=== PATIENT | female | born 1945 | race Caucasian/White ===

== ENCOUNTER → 2016-10-26 | Outpatient (CLI) | payer OTHER ==
[~2016-10-26] MED LIST: GABA-113 PO; MULT-506 PO; OXCA150T2 PO; ZNTT/150 PO
--- NOTE | 2016-10-26 14:15 | MAMMOGRAPHY REPORT ---
BILATERAL DIGITAL SCREENING MAMMOGRAM WITH CAD: 10/26/2016 CLINICAL HISTORY: Routine screening. Patient has no complaints. TECHNIQUE: Current study was also evaluated with a Computer Aided Detection (CAD) system. Bilateral CC and MLO views were obtained. COMPARISON: Comparison is made to exams dated: 09/22/2015 mammogram, 09/19/2014 mammogram, 09/17/2012 m ammogram, 09/13/2010 mammogram, and 09/10/2009 mammogram - [facility]. BREAST COMPOSITION: The tissue of both breasts is almost entirely fatty. FINDINGS: No suspicious masses, calcifications, or areas of architectural distortion are noted in ei ther breast. There has been no significant interval change compared to prior exams. Scattered bilate ral benign-appearing calcifications are stable. Asymmetry in the left lateral breast is stable datin g back to at least the 2009 exam. IMPRESSION: ACR BI-RADS CATEGORY 2: BENIGN There is no mammographic evidence of malignancy. A 1 year screening mammogram is recommended. The pa tient will receive written notification of the results. Approximately 10% of breast cancers are not detected with mammography. A negative mammographic report should not delay biopsy if a clinically suggestive mass is present. Laina Moreno M.D. ah/:10/26/2016 14:01:07 Social Science Manager: Kaykay ERVIN(Shannon)(M), [facility] letter sent: Normal 1/2 BI-RADS Code: ACR BI-RADS Category 2: Benign
== END | disposition home or self-care (01) ==
LOC: C.MAMM 11:37
PROVIDERS: ATTEND Family Medicine
DX: Z12.31 Encounter for screening mammogram for malignant neoplasm of breast (principal)

== ENCOUNTER 2023-05-11 22:47 | Observation (INO) ==
--- NOTE | 2023-05-12 01:19 | Emergency Department Note ---
Impression & Plan Atrial flutter with rapid ventricular response, Fall, Facial laceration Admit to the [facility] ED Provider Note NAME: PERLA DERAS AGE: 77 SEX: Female INFORMANT: Patient ED PROVIDER(S): Katey Chavez DO CHIEF COMPLAINT: Fall PLAN: Disposition: Admit to the [facility] MEDICAL DECISION MAKING: This is a 77-year-old female patient who presents to the emergency department after suffering a fall at a restaurant where she struck the left side of her head on the tile floor. There was no loss of consciousness but she did suffer a laceration above her left eyebrow. Patient was seen here yesterday in the emergency department for complaints of " spells of dizziness." Workup was essentially negative. Today on presentation, the patient was noted to initially present in a normal sinus rhythm at a rate of 84 but flipped into atrial flutter at a rate of 151. She then converted back out of this after just a couple of minutes. She then converted back into an atrial flutter at a rate of 180. She converted out of this on her own again. CT scan of the brain and cervical spine were negative for traumatic injuries. The wound on her left eyebrow was repaired with 3 sutures. See procedure note dictation below for full details. Laboratory studies revealed no leukocytosis. In fact, her white blood cell count was down to 7.7 compared to what it was 2 days ago. H&H are stable. BUN of 26 and creatinine of 0.77 which is baseline for the patient. Glucose of 109. I discussed the case with the [facility]ist and they will evaluate for further management Care/management discussed with: insurance manager and [facility] Triage Nursing notes: Reviewed and agree with them. 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 ST segment depression in the inferior leads and to a lesser degree in the lateral leads. Cardiac Monitoring: Normal sinus rhythm at a rate of 84 Imaging studies: CT scan of the brain and cervical spine: As per stat rad HPI: 77 year old Female arrives for evaluation of fall. Patient has been having episodes or spells of dizziness that she describes it. She was out to dinner tonight with her when she was walking in the restaurant and had 1 of those episodes and fell to the ground striking her forehead off of the tile floor. She did not lose consciousness. PAST MEDICAL HISTORY: See Below, PAST SURGICAL HISTORY: See Below, SOCIAL HISTORY: See Below, HOME MEDICATIONS: See list ALLERGIES: See long list VITALS: See Below PHYSICAL EXAMINATION: HEENT: Head - normocephalic with a 1.5 cm laceration to the left eyebrow. Pupils are equal, round, and reactive to light. Extraocular eye muscles are intact and sclera are anicteric. Ears - bilaterally patent canals with no evidence of hemotympanum. Nose - moist nasal mucosa without evidence of trauma or discharge. Mouth - moist buccal mucosa with no trauma to the teeth or signs of malocclusion. Neck: The neck is supple and there is no pain to palpation over the posterior cervical spine and no obvious step-offs or deformities. There is no JVD or tracheal deviation. Chest: There are no signs of deformities, contusions or abrasions to the chest wall. There is no obvious crepitus or paradoxical chest rise. Heart: Regular, rate, and rhythm. There is a normal S1 and S2 with no murmurs, clicks, or gallops appreciated. Lungs: Clear to auscultation bilaterally with no wheezes, rales, or rhonchi. Abdomen: Soft, completely nontender, nondistended, with good bowel sounds. There is no sign of trauma such as contusions, abrasions or penetrations. There are no palpable pulsatile masses or hepatosplenomegaly. There is no guarding, rigidity, or rebound noted. Pelvis: Stable to rock and compression. Extremities: No obvious trauma, deformities, contusions, or edema. There are easily palpable peripheral pulses. Neuro: The patient is awake and alert and easily able to follow commands. Muscle strength is 5 out of 5 in all 4 extremities. Otherwise, neuro exam is unremarkable. Laceration repair procedure: Location: Left eyebrow Total length: 1.5 cm Complexity: Simple Verbal consent was obtained . A time out was taken and the correct patient and site identified. The skin was prepped with betadine. The target area was anesthetized with 1 ml of 1% lidocaine without epinephrine. Copious irrigation was performed using sterile water. The skin was re-prepped with betadine and a sterile field set. The wound was explored for foreign bodies and none found. Examination revealed no injury to deep structures such as tendons, bone, or significant blood vessels. Debridement was not performed. The wound edges were approximated using 3, 5 -0 simple interrupted nylon sutures. Hemostasis and excellent approximation was achieved. No complications and the patient tolerated the procedure well. Emergency department course: The patient was evaluated in room B-12. A complete history and physical was performed. An order was placed for continuous cardiac monitoring. Patient was in a normal sinus rhythm at a rate of 84. A twelve- lead EKG was obtained while the patient was noted to be in atrial flutter with a rapid rate. An IV lock was initiated and labs were drawn as above. Yesterday's medical records from the emergency department visit were reviewed. Patient went for CT scan of the brain and cervical spine. The wound on the patient's left forehead was repaired as per procedure note. I discussed the case with the [facility] Hospitalist. Past Med/Surg History Medical History Shoulder pain, right S/P FALL -HEALING FRACTURE-NO SURGERY History of trigger finger Dermatitis Diaphragmatic hernia Celiac disease PT DENIES Asthma HX-RELATED TO GERD-NO INHALERS Drug induced constipation Surgical History Nausea and vomiting after administration of anesthetic agent History of surgical procedure - Revise eye muscle w/suture; for strabismus as young child - Treatment of anal fissure (1992) History of thumb surgery Incision of finger Tendon, trigger finger, thumb release History of D&C History of colonoscopy 06/19/2009 History of endoscopy Upper GI in 2008 & 2009 History of tubal ligation History of cataract surgery Bilateral History of carpal tunnel release Family History Grandmother (Paternal) Cancer Liver CA Family hx of colon cancer Mother , 63-64 yrs of age from [place] Heart disease Myocardial infarction Schizophrenia Brother Hypertension Daughter Bipolar disorder Hypertension Father Parkinsons disease Denies family history of Ovarian cancer Prostate cancer Breast cancer Colorectal cancer Social History Smoking Status: Never smoker Second Hand Exposure: No; Do You Dip or Chew Tobacco: No; Hx Alcohol Use: Yes Alcohol type: wine Alcohol Intake Frequency: 2-4 x/Month Alcohol Intake Frequency Comment: OCCASIONAL Hx Substance Use: No Preferred Language: Filipino Communication Ability: Effective Strapper Operator Required: No Beliefs That Will Affect Care: None marital status: Current Living Situation: Spouse Current Living Situation Comment: Lives with current occupational status: retired current occupation: Retired Speech Pathologist How many Children do You have: 3 Feels Safe at Home: Yes Safety Concerns: Feels Safe At This Time Childhood Exposure to Second-Hand Smoke: No Diet: regular caffeine: Yes (Coffee ) Dental Care, Regularly: Yes Physical Activity Frequency: 3-4 Times per Week Physical Activity Frequency Comment: 15mi on bike Seatbelt Use: always Sunscreen Use: Yes (Sometimes ) Assistive Devices: Cane and Hearing Aid - Bilateral Allergies Allergies Allergy/AdvReac Type Severity Reaction Status Date / Time pantoprazole [From Protonix] Allergy Severe SHORT OF Verified 05/11/23 00:37 BREATH, CHEST PAIN Penicillins Allergy Severe HIVES--PER Verified 05/11/23 00:37 GMG ANAPHYLAXIS cephalexin AdvReac Intermediate NAUSEA/VOMI Verified 05/11/23 00:37 TING epinephrine AdvReac Intermediate FELT Verified 05/11/23 00:37 STRANGE omeprazole AdvReac Intermediate TINNITUS Verified 05/11/23 00:37 procaine [From Novocain] AdvReac Intermediate Tachycardia Verified 05/11/23 00:37 sulfamethoxazole AdvReac Intermediate NAUSEA/VOMI Verified 05/11/23 00:37 [From Bactrim] TING trimethoprim [From Bactrim] AdvReac Intermediate NAUSEA/VOMI Verified 05/11/23 00:37 TING bacitracin AdvReac Mild REDNESS AT Verified 05/11/23 00:37 SITE OF APPLICATION Cephalosporins AdvReac Mild Nausea Verified 05/11/23 00:37 Home Meds Home Medications Medication Instructions Recorded Confirmed carbidopa 25 mg-levodopa 100 mg 2 tab PO QID 05/09/20 05/11/23 tablet cholecalciferol (vitamin D3) 25 50 mcg PO QAM 05/09/20 05/11/23 mcg (1,000 unit) capsule (Vitamin D3) melatonin 5 mg tablet 5 mg PO HS PRN Sleep 05/09/20 05/11/23 gabapentin 300 mg capsule 300 mg PO BID 12/31/20 05/11/23 entacapone 200 mg tablet 200 mg PO QID 02/02/21 05/11/23 ropinirole 2 mg tablet,extended 6 mg PO HS 05/11/23 05/11/23 release 24 hr Results & Data (ED) Vital Signs Vital Signs - 24 hr 05/11/23 22:55 05/12/23 01:00 05/12/23 01:00 Temperature 36.8 C Temperature Source Temporal Artery Scan Pulse Rate 103 H 150 H Pulse Rate from SpO2 Sensor 152 H Pulse Rhythm Regular Pulse Strength Normal Respiratory Rate 18 18 Respiratory Effort / Characteristics Non-Labored Spontaneous Respiratory Depth Normal Respiratory Pattern Regular Blood Pressure 98/72 L Blood Pressure Mean 80 Pulse Oximetry 95 96 Oxygen Delivery Method Room Air Room Air Sepsis Recent Fever Within 48 Hours No Sepsis New/Unexplained Change in Mental Status N/A Sepsis Action Taken by Nursing No Action Required 05/12/23 01:11 05/12/23 01:12 05/12/23 01:13 Temperature Temperature Source Pulse Rate 185 H 80 164 H Pulse Rate from SpO2 Sensor Pulse Rhythm Pulse Strength Respiratory Rate Respiratory Effort / Characteristics Respiratory Depth Respiratory Pattern Blood Pressure Blood Pressure Mean Pulse Oximetry Oxygen Delivery Method Sepsis Recent Fever Within 48 Hours Sepsis New/Unexplained Change in Mental Status Sepsis Action Taken by Nursing 05/12/23 01:21 05/12/23 01:39 05/12/23 01:59 Temperature Temperature Source Pulse Rate 193 H 82 Pulse Rate from SpO2 Sensor 151 H Pulse Rhythm Pulse Strength Respiratory Rate 18 Respiratory Effort / Characteristics Respiratory Depth Respiratory Pattern Blood Pressure 110/81 Blood Pressure Mean 90 Pulse Oximetry 98 Oxygen Delivery Method Sepsis Recent Fever Within 48 Hours Sepsis New/Unexplained Change in Mental Status Sepsis Action Taken by Nursing 05/12/23 02:00 05/12/23 02:00 05/12/23 05:00 Temperature Temperature Source Pulse Rate 82 146 H Pulse Rate from SpO2 Sensor 79 Pulse Rhythm Pulse Strength Respiratory Rate 26 H Respiratory Effort / Characteristics Respiratory Depth Respiratory Pattern Blood Pressure 119/71 119/71 130/72 Blood Pressure Mean 87 82 Pulse Oximetry 98 Oxygen Delivery Method Room Air Sepsis Recent Fever Within 48 Hours Sepsis New/Unexplained Change in Mental Status Sepsis Action Taken by Nursing Laboratory Data 05/12/23 01:08 05/12/23 01:08 Lab Results 05/12/23 Range/Units 01:08 WBC 7.70 (4.8-10.8) K/ul RBC 4.17 L (4.20-5.40) M/uL Hgb 12.6 (12.0-16.0) g/dl Hct 37.8 (37.0-47.0) % MCV 90.6 (80.0-100.0) fL MCH 30.2 (25.0-34.0) pg MCHC 33.3 (32.0-36.0) g/dL RDW Std Deviation 46.5 H (36.4-46.3) fL RDW Coeff of [place] 13.7 (11.5-14.5) % Plt Count 189 (130-400) K/uL MPV 11.0 (9.4-12.4) fL Immature Gran % (Auto) 0.3 % Neut % (Auto) 61.1 % Lymph % (Auto) 19.4 % [place] % (Auto) 13.4 % Eos % (Auto) 5.5 % Baso % (Auto) 0.3 % Neut # (Auto) 4.72 (1.40-6.50) K/uL Lymph # (Auto) 1.49 (1.20-3.40) K/uL [place] # (Auto) 1.03 H (0.11-0.59) K/uL Eos # (Auto) 0.42 (0.00-0.50) K/uL Baso # (Auto) 0.02 (0.00-0.20) K/uL Immature Gran # (Auto) 0.02 (0.01-0.20) K/uL Sodium 135 L (136-145) mmol/L Potassium 4.0 (3.5-5.1) mmol/L Chloride 104 (98-107) mmol/L Carbon Dioxide 25 (21-32) mmol/L Anion Gap 6 (3-11) BUN 26 H (6-23) mg/dl Creatinine 0.77 (0.6-1.2) mg/dl Est Cr Clr Drug Dosing 52.0 ml/min Est GFR ( Amer) 85.7 ml/min Est GFR (Non-Af Amer) 74.0 ml/min BUN/Creatinine Ratio 33.8 H (10-20) Glucose 109 H (70-99(Fasting)) mg/dl Calcium 9.6 (8.6-10.3) mg/dl Magnesium 2.1 (1.7-2.4) mg/dl Total Bilirubin 0.4 (0.2-1.0) mg/dl AST 28 (13-39) U/L ALT 6 L (7-52) U/L Alkaline Phosphatase 49 (34-104) U/L Total Protein 6.9 (6.0-8.3) gm/dl Albumin 3.8 (3.4-5.0) gm/dl Globulin 3.1 (2.5-4.0) gm/dl Albumin/Globulin Ratio 1.2 (0.9-2) TSH 4.225 (0.300-4.500) uIu/ml Administered Medications Discontinued Medications Diltiazem HCl (Diltiazem Hcl 5 Mg/Ml 5 Ml Vial) 10 mg IV NOW STA Stop: 05/12/23 01:50 Last Admin: 05/12/23 04:53 Dose: Not Given Documented By: Daniel Lidocaine HCl (Xylocaine 1%/Sod Bicarb 20 Ml Vial) 20 ml INFIL NOW ONE Stop: 05/12/23 02:06 Last Admin: 05/12/23 03:32 Dose: 20 ml Documented By: EMY Metoprolol Tartrate (Metoprolol Tartrate 1 Mg/Ml Vial) 2.5 mg IV NOW STA Stop: 05/12/23 04:50 Last Admin: 05/12/23 05:00 Dose: 2.5 mg Documented By: [facility] Imaging Data Radiologist's Impression: Cervical Spine CT 05/12/23 01:09 Exam(s): CT C SPINE EXAM: CT Cervical Spine Without Intravenous Contrast CLINICAL HISTORY: Reason for exam: fall. TECHNIQUE: Axial computed tomography images of the cervical spine without intravenous contrast. CTDI is 35.51 mGy and DLP is 1145.63 mGy-cm. Automated exposure control was utilized for the study. A dose lowering technique was utilized adhering to the principles of ALARA. COMPARISON: No relevant prior studies available. FINDINGS: Vertebrae: Unremarkable. No acute fracture. Discs/spinal canal/neural foramina: No acute findings. No spinal canal stenosis. Soft tissues: Pleural-parenchymal scarring of the right lung apex. IMPRESSION: No evidence of acute cervical spine pathology. Electronically signed by: Dee Rodriguez MD 05/12/23 03:[address] 05/12/23 01:09 Exam(s): CT HEAD Without Contrast EXAM: CT Head Without Intravenous Contrast CLINICAL HISTORY: Reason for exam: fall. TECHNIQUE: Axial computed tomography images of the head/brain without intravenous contrast. CTDI is 35.51 mGy and DLP is 1145.63 mGy-cm. Automated exposure control was utilized for the study. A dose lowering technique was utilized adhering to the principles of ALARA. COMPARISON: Comparison made to prior brain MRI from November 09, 2021. FINDINGS: The study is limited secondary to motion artifact and metallic streak artifact. Brain: There are bilateral deep brain stimulator electrodes in place in the cerebral peduncles. No hemorrhage. No significant white matter disease. No edema. Ventricles: Unremarkable. No ventriculomegaly. Bones/joints: Hyperostosis frontalis interna. No acute fracture. Soft tissues: Bilateral lens replacements. Sinuses: Unremarkable as visualized. No acute sinusitis. Mastoid air cells: Unremarkable as visualized. No mastoid effusion. IMPRESSION: No evidence of acute intracranial pathology in this limited study. Electronically signed by: Dee Rodriguez MD 05/12/23 03:23 AM Discharge Plan Visit Data Chief Complaint: Neuro Symptoms/Deficit Stated Complaint: PAIN IN BOTH ARM, NAUSEA ED Provider: Katey Chavez Discharge Problem: Atrial flutter with rapid ventricular response, Fall, Facial laceration Discharge Instructions Interventions: ED Discharge Assessment Last Done: 05/12/23 06:19
[2023-05-12 01:28] LABS: Basophils # (auto) 0.02 K/uL (0.00-0.20); Basophils % (auto) 0.3 %; Eosinophils # (auto) 0.42 K/uL (0.00-0.50); Eosinophils % (auto) 5.5 %; Hematocrit (blood only) 37.8 % (37.0-47.0); Hemoglobin 12.6 g/dl (12.0-16.0); Immature Granulocytes # (auto) 0.02 K/uL (0.01-0.20); Immature Granulocytes % (auto) 0.3 %; Lymphocytes # (auto) 1.49 K/uL (1.20-3.40); Lymphocytes % (auto) 19.4 %; Mean Corpuscular Hemoglobin 30.2 pg (25.0-34.0); Mean Corpuscular Hgb Conc 33.3 g/dL (32.0-36.0); Mean Corpuscular Volume 90.6 fL (80.0-100.0); Monocytes # (auto) 1.03 K/uL (0.11-0.59); Monocytes % (auto) 13.4 %; Neutrophils # (auto) 4.72 K/uL (1.40-6.50); Neutrophils % (auto) 61.1 %; Platelet Count 189 K/uL (130-400); RDW Coefficient of Variation 13.7 % (11.5-14.5); RDW Standard Deviation 46.5 fL (36.4-46.3); Red Blood Count 4.17 M/uL (4.20-5.40)
[2023-05-12 01:45] LABS: Albumin Globulin Ratio 1.2 (0.9-2); Albumin Level 3.8 gm/dl (3.4-5.0); BUN Creatinine Ratio 33.8 (10-20); Bilirubin,Total 0.4 mg/dl (0.2-1.0); Calcium 9.6 mg/dl (8.6-10.3); Est GFR (African American) 85.7 ml/min; Globulin 3.1 gm/dl (2.5-4.0); Magnesium 2.1 mg/dl (1.7-2.4); Total Protein 6.9 gm/dl (6.0-8.3)
[2023-05-12 02:00] LABS: Thyroid Stimulating Hormone 4.225 uIu/ml (0.300-4.500)
--- NOTE | 2023-05-12 03:24 | CT Scan Report ---
Exam(s): CT HEAD Without Contrast EXAM: CT Head Without Intravenous Contrast CLINICAL HISTORY: Reason for exam: fall. TECHNIQUE: Axial computed tomography images of the head/brain without intravenous contrast. CTDI is 35.51 mGy and DLP is 1145.63 mGy-cm. Automated exposure control was utilized for the study. A dose lowering technique was utilized adhering to the principles of ALARA. COMPARISON: Comparison made to prior brain MRI from November 09, 2021. FINDINGS: The study is limited secondary to motion artifact and metallic streak artifact. Brain: There are bilateral deep brain stimulator electrodes in place in the cerebral peduncles. No hemorrhage. No significant white matter disease. No edema. Ventricles: Unremarkable. No ventriculomegaly. Bones/joints: Hyperostosis frontalis interna. No acute fracture. Soft tissues: Bilateral lens replacements. Sinuses: Unremarkable as visualized. No acute sinusitis. Mastoid air cells: Unremarkable as visualized. No mastoid effusion. IMPRESSION: No evidence of acute intracranial pathology in this limited study. Electronically signed by: Dee Rodriguez MD 05/12/23 03:23 AM
[2023-05-12] MEDS: XYLOCAINE 1%/SOD BICARB 20 ML VIAL INFIL ONE (03:32)
--- NOTE | 2023-05-12 03:35 | CT Scan Report ---
Exam(s): CT C SPINE EXAM: CT Cervical Spine Without Intravenous Contrast CLINICAL HISTORY: Reason for exam: fall. TECHNIQUE: Axial computed tomography images of the cervical spine without intravenous contrast. CTDI is 35.51 mGy and DLP is 1145.63 mGy-cm. Automated exposure control was utilized for the study. A dose lowering technique was utilized adhering to the principles of ALARA. COMPARISON: No relevant prior studies available. FINDINGS: Vertebrae: Unremarkable. No acute fracture. Discs/spinal canal/neural foramina: No acute findings. No spinal canal stenosis. Soft tissues: Pleural-parenchymal scarring of the right lung apex. IMPRESSION: No evidence of acute cervical spine pathology. Electronically signed by: Dee Rodriguez MD 05/12/23 03:34 AM
--- NOTE | 2023-05-12 04:11 | History & Physical Report ---
Date of Service May 12, 2023 Assessment & Plan (1) Atrial fib/flutter, transient: Plan: New onset a fib/flutter. Most likely in the setting of recent Macrobid use. Patient is symptomatic with the arrhythmia - dizziness, SOB, nausea. Trialing beta blockage with Lopressor 2.5 mg IV. Can consider cards consult if unable to control rate. Admit to PCU/Tele so that IV beta blockers can be administered. continuous cardiac monitoring f/u ECHO CXR K > 4, Mg > 2 (2) Fall: Plan: Patient presenting after a fall. Symptomatic arrhythmia leading to fall. CT Head and CT Spine without acute abnormalities. No neurological deficits noted. Mentation normal. (3) Parkinson disease: Plan: Continue home meds (4) GERD (gastroesophageal reflux disease): Plan: Continue home meds (5) Sensory hearing loss: Plan: Patient hard of hearing. Plan Code status: full DVT ppx: Eliquis 5 mg BID FENGI: regular, easy to chew Dispo: PCU/Tele History of Present Illness Chief Complaint: fall Primary Care Provider: Maurizio Samuel DO Patient presented to the ED after a fall where she struck her head. During her time in the ED she ended up in a fib/flutter with RVR and admission was called.. Patient has been having dizzy spells for the last 36-48 hours. Symptoms come randomly, does feel them coming. Not associated with positional changes. Has associated SOB, heart racing, and nausea with the dizzy spells. Patient had one of those spells which resulted in a fall. Otherwise patient is feeling well - no headaches, vision changes, fevers, chills, abdominal pain, CP, or SOB outside of the setting of the dizzy spells. Of note patient was recently treated with 7 days of Macrobid for an uncomplicated UTI. Symptoms have resolved at this point. Allergies Allergy/AdvReac Type Severity Reaction Status Date / Time pantoprazole [From Protonix] Allergy Severe SHORT OF Verified 05/11/23 00:37 BREATH, CHEST PAIN Penicillins Allergy Severe HIVES--PER Verified 05/11/23 00:37 GMG ANAPHYLAXIS cephalexin AdvReac Intermediate NAUSEA/VOMI Verified 05/11/23 00:37 TING epinephrine AdvReac Intermediate FELT Verified 05/11/23 00:37 STRANGE omeprazole AdvReac Intermediate TINNITUS Verified 05/11/23 00:37 procaine [From Novocain] AdvReac Intermediate Tachycardia Verified 05/11/23 00:37 sulfamethoxazole AdvReac Intermediate NAUSEA/VOMI Verified 05/11/23 00:37 [From Bactrim] TING trimethoprim [From Bactrim] AdvReac Intermediate NAUSEA/VOMI Verified 05/11/23 00:37 TING bacitracin AdvReac Mild REDNESS AT Verified 05/11/23 00:37 SITE OF APPLICATION Cephalosporins AdvReac Mild Nausea Verified 05/11/23 00:37 Home Medications Medication Instructions Recorded Confirmed Type carbidopa 25 mg-levodopa 100 mg 2 tab PO QID 05/09/20 05/11/23 History tablet cholecalciferol (vitamin D3) 25 50 mcg PO QAM 05/09/20 05/11/23 History mcg (1,000 unit) capsule (Vitamin D3) melatonin 5 mg tablet 5 mg PO HS PRN Sleep 05/09/20 05/11/23 History gabapentin 300 mg capsule 300 mg PO BID 12/31/20 05/11/23 History entacapone 200 mg tablet 200 mg PO QID 02/02/21 05/11/23 History ropinirole 2 mg tablet,extended 6 mg PO HS 05/11/23 05/11/23 History release 24 hr Past Med/Surg History Medical History Shoulder pain, right S/P FALL -HEALING FRACTURE-NO SURGERY History of trigger finger Dermatitis Diaphragmatic hernia Celiac disease PT DENIES Asthma HX-RELATED TO GERD-NO INHALERS Drug induced constipation Surgical History Nausea and vomiting after administration of anesthetic agent History of surgical procedure - Revise eye muscle w/suture; for strabismus as young child - Treatment of anal fissure (1992) History of thumb surgery Incision of finger Tendon, trigger finger, thumb release History of D&C History of colonoscopy 06/19/2009 History of endoscopy Upper GI in 2008 & 2009 History of tubal ligation History of cataract surgery Bilateral History of carpal tunnel release Family History Grandmother (Paternal) Cancer Liver CA Family hx of colon cancer Mother , 63-64 yrs of age [place] Heart disease Myocardial infarction Schizophrenia Brother Hypertension Daughter Bipolar disorder Hypertension Father Parkinsons disease Denies family history of Ovarian cancer Prostate cancer Breast cancer Colorectal cancer Social History Smoking Status: Never smoker Second Hand Exposure: No; Do You Dip or Chew Tobacco: No; Hx Alcohol Use: Yes Alcohol type: wine Alcohol Intake Frequency: 2-4 x/Month Alcohol Intake Frequency Comment: OCCASIONAL Hx Substance Use: No Preferred Language: Yoruba Communication Ability: Effective Lock And Dam Operator Required: No Beliefs That Will Affect Care: None marital status: Current Living Situation: Spouse Current Living Situation Comment: Lives with current occupational status: retired current occupation: Retired Speech Pathologist How many Children do You have: 3 Feels Safe at Home: Yes Safety Concerns: Feels Safe At This Time Childhood Exposure to Second-Hand Smoke: No Diet: regular caffeine: Yes (Coffee ) Dental Care, Regularly: Yes Physical Activity Frequency: 3-4 Times per Week Physical Activity Frequency Comment: 15mi on bike Seatbelt Use: always Sunscreen Use: Yes (Sometimes ) Assistive Devices: Cane and Hearing Aid - Bilateral Review of Systems 2 Review of Systems: See HPI Physical Exam 2 Physical Exam: Gen: well appearing female patient in NAD HEENT: AT NC MMM Resp: CTAB no wheezing no increased work of breathing CV: RRR 2-3/6 systolic murmur best heard LUSB, no extra heart sounds, peripheral pulses 2+ symmetric, clinically well perfused Abd: soft, non-tender, non-distended MSK: no obvious deformities Skin: no rashes or bruising Neuro: alert and oriented Psych: appropriate mood and affect Results & Data Results & Data Vital Signs (Past 12 Hours) Vital Signs Temp Pulse Resp BP Pulse Ox O2 Del Method 05/12/23 02:00 119/71 05/12/23 02:00 82 26 H 119/71 98 Room Air 05/12/23 01:59 82 05/12/23 01:39 18 110/81 98 05/12/23 01:21 193 H 05/12/23 01:13 164 H 05/12/23 01:12 80 05/12/23 01:11 185 H 05/12/23 01:00 18 98/72 L 96 Room Air 05/12/23 01:00 150 H 05/11/23 22:55 36.8 C 103 H 18 95 Room Air Laboratory Results 05/12/23 01:08 05/12/23 01:08 Diagnostic Findings Cervical Spine CT 05/12/23 01:09 FINDINGS: Vertebrae: Unremarkable. No acute fracture. Discs/spinal canal/neural foramina: No acute findings. No spinal canal stenosis. Soft tissues: Pleural-parenchymal scarring of the right lung apex. IMPRESSION: No evidence of acute cervical spine pathology. Head CT 05/12/23 01:09 FINDINGS: The study is limited secondary to motion artifact and metallic streak artifact. Brain: There are bilateral deep brain stimulator electrodes in place in the cerebral peduncles. No hemorrhage. No significant white matter disease. No edema. Ventricles: Unremarkable. No ventriculomegaly. Bones/joints: Hyperostosis frontalis interna. No acute fracture. Soft tissues: Bilateral lens replacements. Sinuses: Unremarkable as visualized. No acute sinusitis. Mastoid air cells: Unremarkable as visualized. No mastoid effusion. IMPRESSION: No evidence of acute intracranial pathology in this limited study. Supervising Physician Co-Signing Physician Notes Patient seen and examined, chart reviewed, case discussed with Dr. Ventura and I agree with the assessment and plan as above. Patient currently in NSR after receiving one dose of Metoprolol. No additional complaints at this time No evidence of CHF Resident Activity Tracking Resident Involvement: Resident Care Provided Care Provided: Adult Hospital Medicine (3) Parkinson disease Dyskinesia presence: with dyskinesia Fluctuating manifestations: with fluctuating manifestations Qualified Code(s): G20.B2 - Parkinson's disease with dyskinesia, with fluctuations
[2023-05-12] MEDS: dilTIAZem HCl 5 MG/ML 5 ML VIAL IV STA (04:53)
[2023-05-12] MEDS: METOPROLOL TARTRATE 1 MG/ML VIAL IV STA (05:00)
[2023-05-12] MEDS ORDERED: POLYETHYLENE (MIRALAX) 17 GM PACK PO PRN (06:19)
[2023-05-12] MEDS ORDERED: ACETAMINOPHEN 325 MG TAB PO PRN (06:19)
[2023-05-12] MEDS ORDERED: MELATONIN 3 MG TAB PO PRN (06:21)
--- NOTE | 2023-05-12 06:35 | Billing Data ---
Date of Service May 12, 2023 Coding Level of Care Code 17434 INT INP/OBS CARE
[2023-05-12] MEDS: ENTACAPONE 200 MG TAB PO SCH (08:25)
[2023-05-12] MEDS: APIXABAN 5 MG TABLET PO SCH (08:25)
[2023-05-12] MEDS: GABAPENTIN 300 MG CAP PO SCH (08:25)
[2023-05-12] MEDS: CARBIDOPA/LEVODOPA 25/100MG TAB PO SCH (08:35)
[2023-05-12] MEDS: METOPROLOL TARTRATE 25 MG TAB PO SCH (10:17)
--- NOTE | 2023-05-12 11:50 | XRay Report ---
XR chest 2V PA/lateral HISTORY: Atrial fibrillation. COMPARISON: Chest 02/02/2021. FINDINGS: No pneumothorax. Trace bilateral pleural effusions. The heart is normal in size. Right neur al stimulator device is noted. Calcifications within the aortic knob. No acute fractures. No focal franny ng consolidations to suggest a pneumonia. There is mild central pulmonary vascular congestion without overt edema. IMPRESSION: 1. Mild central pulmonary vascular congestion without overt edema. 2. Trace bilateral pleural effusions. ACT 112: Negative or not required by law. Electronically signed by: Johnny Fried M.D. 05/12/2023 11:49 AM
--- NOTE | 2023-05-12 15:39 | XCELERA ---
[id number]
--- NOTE | 2023-05-12 17:01 | Hospitalist Progress Note ---
Date of Service May 12, 2023 Assessment & Plan (1) Atrial fib/flutter, transient: Plan: - New onset a flutter. Patient was symptomatic with the arrhythmia on admissiondizziness, shortness of breath, nausea. - Returned to normal sinus rhythm after 1 dose of metoprolol 2.5 mg IV. - Elevated troponin on admission at 58.8 trending down. Most likely due to demand ischemia. - Metoprolol tartrate 12.5 mg p.o. twice daily - Eliquis 5 mg p.o. twice daily - HAS-BLED Score: 1, low risk for major bleeding. [id number] Score: 3, moderate-high risk. -- Therefore, should be an anticoagulation candidate upon discharge. - Echo 05/12/23: EF 65-70%. No regional wall abnormalities. - Physical therapy consulted. Evaluate patient's heart rhythm once physical demand is exerted. (2) Fall: Plan: - Patient presented after a fall, secondary to symptomatic arrhythmia. - CT Head and CT Spine without acute abnormalities. - No neurological deficits noted. Mentation normal. (3) Parkinson disease: Plan: Continue Entacapone and carbidopa/levodopa and neurontin (4) Sensory hearing loss: Plan: Patient hard of hearing at baseline Plan CODE STATUS: Full code DVT ppx: Erickson Admission and Anticipated Discharge Date Admission Date: May 12, 2023 Subjective Patient seen and evaluated at bedside in ED. She reports to feeling much better today. Since being admitted, she has not had any heart palpitations, dizziness, lightheadedness, nausea, or shortness of breath. Discussed in detail with the patient being on a beta-ira and anticoagulation due to the new onset a flutter. We discussed the risks and benefits of anticoagulation, and the patient reports she wants to take a day to think about it. Physical Exam Physical Exam: General: No acute distress, nondiaphoretic, well-developed, well-nourished. Hard of hearing. Skin: The skin was without rashes, erythema, edema, or bruising. Cardiac: Regular rate and rhythm without murmurs gallops or rubs. Pulm: Clear to auscultation bilaterally without wheezes, rales or rhonchi. No retractions or accessory muscle use. Abdominal: Positive bowel sounds x 4. Soft, nontender, without masses or organomegaly. No guarding or rebound tenderness. Neuro: A&O x3. No focal neurological deficits. Results & Data Results & Data Vital Signs (Past 12 Hours) Vital Signs Temp Pulse Pulse Resp BP BP Pulse Ox 05/12/23 10:00 71 18 87 L 05/12/23 09:00 75 25 H 98 05/12/23 08:36 127/71 05/12/23 08:36 70 17 97 05/12/23 08:00 65 18 93 05/12/23 07:45 36.8 C 82 20 127/71 98 05/12/23 07:40 75 05/12/23 07:00 64 15 98 05/12/23 06:00 68 24 96 05/12/23 05:33 37.1 C 145 H 20 130/72 99 05/12/23 05:28 67 05/12/23 05:26 66 20 97 05/12/23 05:00 80 20 130/72 99 05/12/23 05:00 146 H 130/72 O2 Del Method O2 Flow Rate 05/12/23 10:00 05/12/23 09:00 05/12/23 08:36 05/12/23 08:36 05/12/23 08:00 05/12/23 07:45 Room Air 05/12/23 07:40 05/12/23 07:00 05/12/23 06:00 Room Air 05/12/23 05:33 Nasal Cannula 2 05/12/23 05:28 05/12/23 05:26 Room Air 05/12/23 05:00 Room Air 05/12/23 05:00 Laboratory Results Reviewed CBC Reviewed CMP Reviewed echo Diagnostic Findings Echocardiogram 05/12/2023 Interpretation summary: 1. Normal left ventricular size and systolic function. EF 65-70%. No regional wall abnormalities. No left ventricular hypertrophy. 2. Sclerotic aortic valve with borderline stenosis and mild regurgitation. 3. Normal estimated right ventricular systolic pressure. 4. Sinus rhythm. 5. Compared to prior study on 09/05/2008, borderline aortic stenosis is not present. PG Care Time/CCT Total # of Minutes Spent Total Time Spent with Patient: Total time spent is greater than 50% in coordination of care (as documented) at patient's floor/unit and/or counseling patient: Coding Level of Care Code 63464 SUB INP/OBS CARE 3/50MIN Diagnoses Atrial fib/flutter, transient I48.91; I48.92 Fall W19.XXXA Parkinson disease G20.B2 Dyskinesia presence: with dyskinesia Fluctuating manifestations: with fluctuating manifestations Sensory hearing loss H90.5 (3) Parkinson disease Dyskinesia presence: with dyskinesia Fluctuating manifestations: with fluctuating manifestations Qualified Code(s): G20.B2 - Parkinson's disease with dyskinesia, with fluctuations
[2023-05-13] MEDS: [UNRECOGNIZED DRUG - REMARK] PO SCH (00:03)
[2023-05-13 07:03] LABS: Basophils # (auto) 0.03 K/uL (0.00-0.20); Basophils % (auto) 0.5 %; Eosinophils # (auto) 0.53 K/uL (0.00-0.50); Eosinophils % (auto) 9.7 %; Hematocrit (blood only) 35.1 % (37.0-47.0); Hemoglobin 11.6 g/dl (12.0-16.0); Immature Granulocytes # (auto) 0.01 K/uL (0.01-0.20); Immature Granulocytes % (auto) 0.2 %; Lymphocytes # (auto) 2.05 K/uL (1.20-3.40); Lymphocytes % (auto) 37.4 %; Mean Corpuscular Hemoglobin 30.4 pg (25.0-34.0); Mean Corpuscular Volume 91.9 fL (80.0-100.0); Mean Platelet Volume 11.8 fL (9.4-12.4); Monocytes # (auto) 0.72 K/uL (0.11-0.59); Monocytes % (auto) 13.1 %; Neutrophils # (auto) 2.14 K/uL (1.40-6.50); Neutrophils % (auto) 39.1 %; Platelet Count 185 K/uL (130-400); RDW Standard Deviation 47.7 fL (36.4-46.3); Red Blood Count 3.82 M/uL (4.20-5.40); White Blood Count 5.48 K/ul (4.8-10.8)
[2023-05-13 07:22] LABS: BUN Creatinine Ratio 29.2 (10-20); Calcium 8.9 mg/dl (8.6-10.3); Creatinine Clr Calc Pharmacy 55.6 ml/min; Est GFR (Non-African American) 80.2 ml/min; Magnesium 2.2 mg/dl (1.7-2.4); Potassium 3.7 mmol/L (3.5-5.1)
--- NOTE | 2023-05-13 07:33 | Electrocardiogram Report ---
Test Reason : Blood Pressure : / mmHG Vent. Rate : 151 BPM Atrial Rate : 302 BPM P-R Int : 000 ms QRS Dur : 080 ms QT Int : 316 ms P-R-T Axes : 265 043 -59 degrees QTc Int : 500 ms Atrial flutter with 2:1 A-V conduction ST depression, consider subendocardial injury Nonspecific T wave abnormality Abnormal ECG When compared with ECG of 02-FEB-2021 13:15, Atrial flutter has replaced Sinus rhythm Vent. rate has increased BY [address] now depressed in Inferior leads ST now depressed in Anterolateral leads T wave inversion now evident in Inferior leads Confirmed by Eliu Beckett ([id number]) on 05/13/2023 7:33:01 AM Referred By: REFERRED SELF Confirmed By:Eliu Beckett
--- NOTE | 2023-05-13 15:30 | Discharge Summary ---
Date of Service May 13, 2023 Admission HPI Per Admitting Provider Patient presented to the ED after a fall where she struck her head. During her time in the ED she ended up in a fib/flutter with RVR and admission was called.. Patient has been having dizzy spells for the last 36-48 hours. Symptoms come randomly, does feel them coming. Not associated with positional changes. Has associated SOB, heart racing, and nausea with the dizzy spells. Patient had one of those spells which resulted in a fall. Otherwise patient is feeling well - no headaches, vision changes, fevers, chills, abdominal pain, CP, or SOB outside of the setting of the dizzy spells. Of note patient was recently treated with 7 days of Macrobid for an uncomplicated UTI. Symptoms have resolved at this point. Admission Exam Per Admitting Provider Gen: well appearing female patient in NAD HEENT: AT NC MMM Resp: CTAB no wheezing no increased work of breathing CV: RRR 2-3/6 systolic murmur best heard LUSB, no extra heart sounds, peripheral pulses 2+ symmetric, clinically well perfused Abd: soft, non-tender, non-distended MSK: no obvious deformities Skin: no rashes or bruising Neuro: alert and oriented Psych: appropriate mood and affect Principal Diagnosis New onset atrial flutter, transient Fall, secondary to symptomatic arrhythmia Discharge Exam General: No acute distress, nondiaphoretic, well-developed, well-nourished. Hard of hearing. Skin: The skin was without rashes, erythema, edema, or bruising. Cardiac: Regular rate and rhythm without murmurs gallops or rubs. Pulm: Clear to auscultation bilaterally without wheezes, rales or rhonchi. No retractions or accessory muscle use. Abdominal: Positive bowel sounds x 4. Soft, nontender, without masses or organomegaly. No guarding or rebound tenderness. Neuro: A&O x3. No focal neurological deficits. Discharge Data Allergies Allergy/AdvReac Type Severity Reaction Status Date / Time pantoprazole [From Protonix] Allergy Severe SHORT OF Verified 05/11/23 00:37 BREATH, CHEST PAIN Penicillins Allergy Severe HIVES--PER Verified 05/11/23 00:37 GMG ANAPHYLAXIS cephalexin AdvReac Intermediate NAUSEA/VOMI Verified 05/11/23 00:37 TING epinephrine AdvReac Intermediate FELT Verified 05/11/23 00:37 STRANGE omeprazole AdvReac Intermediate TINNITUS Verified 05/11/23 00:37 procaine [From Novocain] AdvReac Intermediate Tachycardia Verified 05/11/23 00:37 sulfamethoxazole AdvReac Intermediate NAUSEA/VOMI Verified 05/11/23 00:37 [From Bactrim] TING trimethoprim [From Bactrim] AdvReac Intermediate NAUSEA/VOMI Verified 05/11/23 00:37 TING bacitracin AdvReac Mild REDNESS AT Verified 05/11/23 00:37 SITE OF APPLICATION Cephalosporins AdvReac Mild Nausea Verified 05/11/23 00:37 Consultations 05/12/23 04:16 ED Decision to Admit Stat 05/13/23 15:22 Consult GABBIE epidemiologist Routine Ordered Studies 05/12/23 01:09 CT cervical spine wo con Stat CT head/brain wo con Stat Hospital Course (1) Atrial fib/flutter, transient: - New onset a flutter. Patient was symptomatic with the arrhythmia on admissiondizziness, shortness of breath, nausea. - Returned to normal sinus rhythm after 1 dose of metoprolol 2.5 mg IV, and brent ined in NSR throughout hospital stay. - Elevated troponin on admission at 58.8 trending down. Most likely due to demand ischemia. - Metoprolol tartrate 12.5 mg p.o. twice daily - Eliquis 5 mg p.o. twice daily - HAS-BLED Score: 1, low risk for major bleeding. [id number] Score: 3, moderate-high risk. -- Therefore, should be an anticoagulation candidate upon discharge. - Echo 05/12/23: EF 65-70%. No regional wall abnormalities. - Continue metoprolol and Eliquis upon discharge - Close follow-up with cardiology. Follow-up with PCP (2) Fall: - Patient presented after a fall, secondary to symptomatic arrhythmia. - CT Head and CT Spine without acute abnormalities. - No neurological deficits noted. Mentation normal. (3) Parkinson disease: Continue Entacapone and carbidopa/levodopa and neurontin (4) Sensory hearing loss: Patient hard of hearing at baseline Plan CODE STATUS: Full code DVT ppx: Eliquis Total Time Total Time Spent Total Time Spent (In Minutes): Greater than 30 minutes spent completing this discharge process including direct patient care, medication reconciliation, documentation, review of labs and images, and coordination of care. Discharge Plan Discharge Items Patient Disposition: Home - Self-Care Reason For Visit: FALL Discharge Diagnosis: Atrial flutter, transient Fall, secondary to symptomatic arrhythmia Activity: Resume your previous activity Non-emergency contact: Primary Care Provider and [facility] [employer] Call non-emergency contact if: you have any medication questions Follow-up/Referrals: Maurizio Samuel DO [Primary Care Provider] - 05/22/23 12:00 pm Diet: Regular Diet Texture: Easy to Chew Addtl Attending Provider Instructions: You were admitted to the hospital due to atrial flutter, which led to a fall at home. This arrhythmia is what caused your symptoms of dizziness, shortness of breath, nausea. Upon arrival to the emergency department, your heart rhythm was still in atrial flutter, however returned to normal sinus rhythm after 1 dose of metoprolol. You had a CT scan done of your head and spine because of the fall you experienced, which showed no acute abnormalities. Atrial flutter is an arrhythmia of the heart that causes the heart to beat faster than normal. With atrial flutter, audi abnormal electrical circuit within the heart causes the atria to contract too quickly. This results in a fast, steady heartbeat. Because the atria are not anna normally, blood may pool in the atria (the upper chambers of the heart) instead of moving into the ventricles (the lower chambers of the heart). This can increase the risk for blood clots and stroke. The ventricle is also anna quickly. As a result, they may not pump blood to the body and lungs as well as they should. This can weaken the heart muscle over time and cause heart failure. Symptoms of atrial flutter include (a fast, pounding heartbeat, shortness of breath, tiredness, dizziness or fainting, or chest pain. Upon discharge from the hospital, you are being prescribed 2 medications: * Metoprolol [id number] mg by mouth twice daily -- This is a beta-ira that slows down your heart rate. * Eliquis5 mg by mouth twice daily -- This is a blood thinner that reduces the risk of blood clots or stroke. You can follow-up with your PCP and machine striper. Their offices will call you within the week with the date and time of your appointments. Please call your healthcare provider if you have any of these: Swelling in either leg, feeling lightheaded, faint, or dizzy Please return to the hospital if any of these occur: Shortness of breath or trouble breathing, passing out, uncontrolled bleeding, heartbeat that is irregular/very fast or slow compared with your normal heartbeat, chest pain or pressure, extreme drowsiness or confusion, numbness or weakness in your arms, legs, or face, or trouble speaking or seeing. Pending Studies at Discharge: No Stand-Alone Forms: [facility], Smoking Cessation Medications and DC Order Prescriptions: New Eliquis 5 mg Tablet 5 mg PO BID Qty: 60 0RF metoprolol tartrate 25 mg Tablet 12.5 mg PO BID Qty: 60 0RF metoprolol tartrate 25 mg tablet 12.5 mg PO BID Qty: 60 0RF Eliquis 5 mg tablet 5 mg PO BID Qty: 60 0RF Continued gabapentin 300 mg capsule 300 mg PO BID Rx Instructions: UNSURE IF PT STILL TAKING, LAST FILLED 11/21/22 FOR 30 DAYS. carbidopa-levodopa 25-100 mg tablet 2 tab PO QID cholecalciferol (vitamin D3) [Vitamin D3] 25 mcg (1,000 unit) Capsule 50 mcg PO QAM melatonin 5 mg Tablet 5 mg PO HS PRN (Reason: Sleep) entacapone 200 mg tablet 200 mg PO QID ropinirole 2 mg tablet extended release 24 hr 6 mg PO HS Discharge Orders: Discharge Order (Routine); Ordered 05/13/23 Ordered By: Kia Zabala/Other Patient Handouts: Apixaban Oral Tablet, Metoprolol Oral Tablet, Understanding Atrial Flutter, ED Atrial Flutter Admission Data Admit Date/Time: 05/12/23 05:02 Attending Provider: Clement Rebollar Admit Provider: Leanne Ventura Primary Care Provider: Maurizio Samuel Other Providers: Day Contreras Other Interventions: Discharge Summary Assessment (RN) Last Done: 05/13/23 13:14 Coding Level of Care Code 62678 INP/OBS DISCH >30 MIN Diagnoses Atrial fib/flutter, transient I48.91; I48.92 Fall W19.XXXA Parkinson disease G20.B2 Dyskinesia presence: with dyskinesia Fluctuating manifestations: with fluctuating manifestations Sensory hearing loss H90.5
== END 2023-05-13 14:43 | disposition home or self-care (01) ==
LOC: EDINP 22:47 → ED 22:47 → SUATTDRO 05-12 05:02 → EDINP 05-12 22:06 → 4W 05-12 22:37

== ENCOUNTER 2023-09-05 10:18 | Inpatient (IN) ==
--- NOTE | 2023-09-05 11:27 | Emergency Department Note ---
Impression & Plan Dyspnea, Nausea, Constipation, SBO (small bowel obstruction), Incarcerated inguinal hernia ED Provider Note ED Provider Note NAME: JUANY DERAS AGE:78 SEX: Female : 1945 ARRIVES VIA: Private vehicle INFORMANT: Patient ED PROVIDER(s): Juany Angeles DO CHIEF COMPLAINT: Shortness of breath, nausea, decreased appetite, constipation HPI: This is a 78-year-old female who presents emergency ferment due to concern for increased shortness of breath, decreased appetite and nausea, as well as 2 weeks of constipation. Patient states she first noticed the decreased appetite and increased shortness of breath on Monday of last week. Patient states she does have a history of Parkinson's and it is not uncommon for her to have increased difficulty with any exertion. She states has not had any recent change in medications or diet. She states 3 weeks ago he did attend a wedding in which there were lots of people however she did not have any overt symptoms of any illness until Monday. She states she has not had a normal bowel movement in 2 weeks despite taking laxatives each of the last 3 days. Patient has a DBS for her Parkinsons Disease. PAST MEDICAL HISTORY:See Below PAST SURGICAL HISTORY:See Below FAMILY HISTORY:See Below SOCIAL HISTORY:See Below HOME MEDICATIONS:See Below ALLERGIES:See Below VITALS:See Below PHYSICAL EXAMINATION: GENERAL: alert, well appearing, well nourished, no distress, non-toxic EYE EXAM: normal conjunctiva, PERRL and EOM's grossly intact OROPHARYNX: no exudate, no erythema, lips, buccal mucosa, and tongue normal and mucous membranes are dry NECK: supple, no nuchal rigidity, no adenopathy, non-tender LUNGS: Clear to auscultation. Normal chest wall mechanics, no w/r/r HEART: no murmurs, S1 normal and S2 normal ABDOMEN: abdomen soft, central abdominal discomfort with palpation normo-active bowel sounds, no masses, no rebound or guarding. Mild distention, mild tympany to percussion. BACK: Back is symmetrical on inspection and there is no deformity, no midline tenderness, no CVA tenderness. SKIN: no rashes, petechiae, orbruising UPPER EXTREMITIES: upper extremities are grossly normal. FROM, nml pulses b/l. LOWER EXTREMITIES: No pitting edema. FROM, nml pulses b/l. NEURO EXAM: Normal sensorium, cranial nerves II-XII grossly intact, normal speech, no facial droop,nogross weakness of arms, no gross weakness of legs. Gross sensation intact. No ataxia. Vital Signs: reviewed and remarkable Differential Diagnosis: Constipation, GERD, bowel obstruction, volvulus, UTI, dehydration, MARYELLEN, medication ADR, colitis, mesenteric ischemia, as well as others were considered MEDICAL DECISION MAKING: This is a 78-year-old female who presents emergency department due to concern for 2 weeks of constipation, with worsening nausea and weakness. She was afebrile and vital signs stable. Labs drawn and sent, IV established, EKG and chest x-ray performed bedside interpreted me and patient monitored on telemetry. She was started on IV fluids and given IV Tylenol an IV pepcid. Patient sent for CT abdomen and pelvis. Patient found to have a small bowel obstruction secondary to incarcerated inguinal hernia on CT. General surgery was contacted via [place] text and reviewed the case. They advised they will come see the patient in the emergency department but would like patient admitted to the hospitalist due to other concurrent medical conditions and advanced age. Case discussed with the hospitalist team additionally. NG placed with immediate return of a large volume of fluid however patient states she did feel slightly more comfortable and had less abdominal distention following this. We did clarify patient had not yet taken her anticoagulation medication that morning prior to coming in. Consultation(s): 165: Discussed with general surgery via [place] text. Dr. Velazquez will come evaluate the patient in the emergency department. 1711: Discussed with Dr. Cortez, [facility] hospitalist team, for additional evaluation and management. ER Treatment Provided: See below Diagnostics Interpreted By Me: -ECG: Normal sinus at 78, normal axis, normal intervals, inverted T waves in V2 and V3, other nonspecific ST/T wave changes, baseline artifact noted -Cardiac Monitoring: An order was placed for continuous cardiac monitoring. The monitor shows a rate of 80 with normal sinus rhythm. -Laboratory studies: As stated above and show below. -Imaging studies: X-ray Chest: A single view study of the chest was reviewed and was negative for cardiomegaly, focal infiltrate, effusion, pulmonary edema, or wide mediastinum. Triage Nursing Note Reviewed Prior/Outside Records Reviewed Past Med/Surg History Problem List (Updated 09/07/23 @ 11:29 by Juany Angeles DO) Incarcerated inguinal hernia (Acute) SBO (small bowel obstruction) (Acute) Incarcerated hernia SBO (small bowel obstruction) Constipation (Acute) Nausea (Acute) Dyspnea (Acute) Tick bite of buttock SSS (sick sinus syndrome) Memory impairment Atrial flutter with rapid ventricular response (Acute) Atrial fib/flutter, transient OAB (overactive bladder) Vitamin D deficiency Persistent insomnia Dream enactment behavior Prediabetes Actinic keratosis Dysfunction of eustachian tube Trigeminal neuralgia R side Female stress incontinence Wrist pain, right De Quervain's tenosynovitis Rash Neck pain Cervical spine arthritis Dyslipidemia Gastroparesis HX Sensory hearing loss Parkinson disease (Acute) F/U DR JENNIFER HINTON [facility] on hold since 07/07/21 per neuro instructions for 07/22/21 c-scope per nursing assessment Medical History Facial laceration History of humerus fracture (02/02/21) Hill-Sachs impaction fracture with fracture of the right humeral head with displaced fragment from a fall Positive colorectal cancer screening using Cologuard test Partial tear of tendon Right wrist tendinitis YUKO (generalized anxiety disorder) GERD (gastroesophageal reflux disease) Fall History of urinary tract infection Acute UTI Screening for breast cancer Shoulder pain, right S/P FALL -HEALING FRACTURE-NO SURGERY History of trigger finger Dermatitis Diaphragmatic hernia Celiac disease PT DENIES Asthma HX-RELATED TO GERD-NO INHALERS Drug induced constipation Surgical History Nausea and vomiting after administration of anesthetic agent History of surgical procedure - Revise eye muscle w/suture; for strabismus as young child - Treatment of anal fissure (1992) History of thumb surgery Incision of finger Tendon, trigger finger, thumb release History of D&C History of colonoscopy 06/19/2009 History of endoscopy Upper GI in 2008 & 2009 History of tubal ligation History of cataract surgery Bilateral History of carpal tunnel release Family History Grandmother (Paternal) Cancer Liver CA Family hx of colon cancer Mother , 63-64 yrs of age from [place] Heart disease Myocardial infarction Schizophrenia Brother Hypertension Daughter Bipolar disorder Hypertension Father Parkinsons disease Denies family history of Ovarian cancer Prostate cancer Breast cancer Colorectal cancer Social History Smoking Status: Never smoker Second Hand Exposure: No; Do You Dip or Chew Tobacco: No; Hx Alcohol Use: Yes Alcohol type: wine Alcohol Intake Frequency: 2-4 x/Month Alcohol Intake Frequency Comment: OCCASIONAL Hx Substance Use: No Preferred Language: Armenian Communication Ability: Effective Linoleum Tile Layer Required: No Beliefs That Will Affect Care: None marital status: Current Living Situation: Spouse Current Living Situation Comment: Lives with current occupational status: retired current occupation: Retired Speech Pathologist How many Children do You have: 3 Feels Safe at Home: Yes Childhood Exposure to Second-Hand Smoke: No Diet: regular caffeine: Yes (Coffee ) Dental Care, Regularly: Yes Physical Activity Frequency: 3-4 Times per Week Physical Activity Frequency Comment: 15mi on bike Seatbelt Use: always Sunscreen Use: Yes (Sometimes ) Assistive Devices: Walker Allergies Allergies Allergy/AdvReac Type Severity Reaction Status Date / Time pantoprazole [From Protonix] Allergy Severe SHORT OF Verified 09/04/23 10:54 BREATH, CHEST PAIN Penicillins Allergy Severe HIVES--PER Verified 09/04/23 10:54 GMG ANAPHYLAXIS cephalexin AdvReac Intermediate NAUSEA/VOMI Verified 09/04/23 10:54 TING epinephrine AdvReac Intermediate FELT Verified 09/04/23 10:54 STRANGE omeprazole AdvReac Intermediate TINNITUS Verified 09/04/23 10:54 procaine [From Novocain] AdvReac Intermediate Tachycardia Verified 09/04/23 10:54 sulfamethoxazole AdvReac Intermediate NAUSEA/VOMI Verified 09/04/23 10:54 [From Bactrim] TING trimethoprim [From Bactrim] AdvReac Intermediate NAUSEA/VOMI Verified 09/04/23 10:54 TING bacitracin AdvReac Mild REDNESS AT Verified 09/04/23 10:54 SITE OF APPLICATION Cephalosporins AdvReac Mild Nausea Verified 09/04/23 10:54 Home Meds Home Medications Medication Instructions Recorded Confirmed melatonin 5 mg tablet 5 mg PO HS PRN Sleep 05/09/20 09/05/23 entacapone 200 mg tablet 200 mg PO QID 02/02/21 09/05/23 ropinirole 2 mg tablet,extended 6 mg PO HS 05/11/23 09/05/23 release 24 hr carbidopa 25 mg-levodopa 100 mg 1.5 tab PO QID 09/04/23 09/05/23 tablet Previous Rx's Medication Instructions Recorded cholecalciferol (vitamin D3) 25 50 mcg (2 x 25 mcg (1,000 unit)) 05/22/23 mcg (1,000 unit) capsule (Vitamin PO QAM #90 caps D3) apixaban 5 mg tablet (Eliquis) 5 mg PO BID #180 tabs 06/14/23 metoprolol tartrate 25 mg tablet 12.5 mg (1/2 x 25 mg) PO BID #60 08/10/23 tabs Results & Data (ED) Vital Signs Vital Signs - 24 hr 09/05/23 10:19 09/05/23 11:01 09/05/23 11:10 Temperature 36.6 C Temperature Source Temporal Artery Scan Pulse Rate 81 76 Pulse Rate [Left Finger] 75 Respiratory Rate 18 18 Respiratory Effort / Characteristics Non-Labored Blood Pressure 117/79 Blood Pressure [Right Arm] 149/84 H Blood Pressure Mean 91 Blood Pressure Mean [Right Arm] 105 Blood Pressure Position [Right Arm] Lying Pulse Oximetry 96 95 Oxygen Delivery Method Room Air Room Air Sepsis Recent Fever Within 48 Hours No Sepsis New/Unexplained Change in Mental Status N/A Sepsis Action Taken by Nursing No Action Required 09/05/23 13:08 09/05/23 15:16 Temperature Temperature Source Pulse Rate Pulse Rate [Left Finger] 78 78 Respiratory Rate 21 18 Respiratory Effort / Characteristics Blood Pressure Blood Pressure [Right Arm] 145/55 H 151/72 H Blood Pressure Mean Blood Pressure Mean [Right Arm] 85 98 Blood Pressure Position [Right Arm] Lying Pulse Oximetry 98 96 Oxygen Delivery Method Room Air Room Air Sepsis Recent Fever Within 48 Hours Sepsis New/Unexplained Change in Mental Status Sepsis Action Taken by Nursing Laboratory Data 09/07/23 05:19 09/07/23 05:19 Lab Results 09/05/23 09/05/23 09/05/23 Range/Units 10:43 11:32 12:50 WBC 12.00 H (4.8-10.8) K/ul RBC 4.59 (4.20-5.40) M/uL Hgb 13.8 (12.0-16.0) g/dl Hct 41.4 (37.0-47.0) % MCV 90.2 (80.0-100.0) fL MCH 30.1 (25.0-34.0) pg MCHC 33.3 (32.0-36.0) g/dL RDW Std Deviation 43.3 (36.4-46.3) fL RDW Coeff of Betito 13.2 (11.5-14.5) % Plt Count 297 (130-400) K/uL MPV 10.7 (9.4-12.4) fL Immature Gran % (Auto) 0.3 % Neut % (Auto) 74.4 % Lymph % (Auto) 14.8 % Dodge % (Auto) 10.3 % Eos % (Auto) 0.0 % Baso % (Auto) 0.2 % Neut # (Auto) 8.93 H (1.40-6.50) K/uL Lymph # (Auto) 1.78 (1.20-3.40) K/uL Dodge # (Auto) 1.23 H (0.11-0.59) K/uL Eos # (Auto) 0.00 (0.00-0.50) K/uL Baso # (Auto) 0.02 (0.00-0.20) K/uL Immature Gran # (Auto) 0.04 (0.01-0.20) K/uL PT 11.4 (9.0-12.0) Seconds INR 1.1 (0.9-1.1) Sodium 137 (136-145) mmol/L Potassium 3.8 (3.5-5.1) mmol/L Chloride 97 L (98-107) mmol/L Carbon Dioxide 32 (21-32) mmol/L Anion Gap 8 (3-11) BUN 38 H (6-23) mg/dl Creatinine 0.85 (0.6-1.2) mg/dl Est Cr Clr Drug Dosing 46.3 ml/min Est GFR ( Amer) 75.5 ml/min Est GFR (Non-Af Amer) 65.2 ml/min BUN/Creatinine Ratio 44.7 H (10-20) Glucose 133 H (70-99(Fasting)) mg/dl Lactate 1.2 (0.4-2.0) mmol/L Calcium 10.8 H (8.6-10.3) mg/dl Total Bilirubin 0.8 (0.2-1.0) mg/dl AST 13 (13-39) U/L ALT 6 L (7-52) U/L Alkaline Phosphatase 64 (34-104) U/L Troponin I High Sens 9.2 (0-14) pg/ml Total Protein 8.4 H (6.0-8.3) gm/dl Albumin 4.6 (3.4-5.0) gm/dl Globulin 3.8 (2.5-4.0) gm/dl Albumin/Globulin Ratio 1.2 (0.9-2) Lipase 102 H (11-82) U/L Urine Color Dark Yellow Urine Appearance Clear (Clear) Urine pH 6.0 (4.5-7.5) Ur Specific Wis[place]k 1.030 (1.000-1.030) Urine Protein 1+ H (Negative) Urine Glucose (UA) Negative (Negative) Urine Ketones Trace H (Negative) Urine Blood Negative (Negative) Urine Nitrite Negative (Negative) Urine Bilirubin 1+ H (Negative) Urine Urobilinogen Negative (Negative) Ur Leukocyte Esterase Trace H (Negative) Urine WBC (Auto) 0-5 (0-5) /hpf Urine RBC (Auto) 3-5 H (0-2) /hpf U Hyaline Cast (Auto) 0-2 (0-2) /lpf U Epithel Cells (Auto) 3-5 H (0-2) /hpf Urine Bacteria (Auto) None Seen (None Seen) Ethyl Alcohol mg/dL < 10.0 (<10.0) mg/dl Administered Medications Lactated Ringer's (Lr) 1,000 mls @ 125 mls/hr IV .Q8H [facility] Stop: 10/05/23 17:59 Last Admin: 09/07/23 04:21 Dose: 125 mls/hr Documented By: Infusion: 09/07/23 04:21 Dose: Infused Documented By: Admin: 09/06/23 20:32 Dose: 125 mls/hr Documented By: Infusion: 09/06/23 20:32 Dose: Infused Documented By: Admin: 09/06/23 13:44 Dose: 125 mls/hr Documented By: Infusion: 09/06/23 13:18 Dose: Infused Documented By: Admin: 09/06/23 05:18 Dose: 125 mls/hr Documented By: Infusion: 09/06/23 05:18 Dose: Infused Documented By: Admin: 09/05/23 21:32 Dose: 125 mls/hr Documented By: JULIETH Metoprolol Tartrate (Metoprolol Tartrate 1 Mg/Ml Vial) 2.5 mg IV Q6H JALEN Stop: 10/06/23 21:59 Last Admin: 09/07/23 09:50 Dose: 2.5 mg Documented By: Admin: 09/07/23 04:25 Dose: 2.5 mg Documented By: Admin: 09/06/23 23:00 Dose: 2.5 mg Documented By: JULIETH Discontinued Medications Bupivacaine HCl/Epinephrine Bitart (Bupivacaine/Epinephrine 0.5% Mpf 1:200,000 30 Ml Vial) Confirm Administered Dose 30 ml .ROUTE .STK-MED ONE Stop: 09/06/23 11:12 Last Admin: 09/06/23 12:20 Dose: 7 ml Documented By: NICCI Famotidine (Famotidine/Pf 20 Mg/2 Ml Vial) Confirm Administered Dose 20 mg IV .STK-MED ONE Stop: 09/06/23 10:19 Last Admin: 09/06/23 13:44 Dose: Not Given Documented By: LETICIA Sodium Chloride (Nss) 1,000 mls @ 250 mls/hr IV .Q4H JALEN Stop: 10/05/23 11:29 Last Infusion: 09/05/23 21:41 Dose: Infused Documented By: Admin: 09/05/23 20:57 Dose: Not Given Documented By: Admin: 09/05/23 16:38 Dose: 250 mls/hr Documented By: Infusion: 09/05/23 15:41 Dose: Infused Documented By: Admin: 09/05/23 11:41 Dose: 250 mls/hr Documented By: MEENA Famotidine (Pepcid 20mg Iv Push) 20 mg in 5 mls @ 2.5 mls/min IV NOW STA Stop: 09/05/23 12:25 Last Admin: 09/05/23 12:59 Dose: 2.5 mls/min Documented By: MEENA Clindamycin Phosphate (Cleocin/D5w) 900 mg in 50 mls @ 100 mls/hr IV PREOP JALEN Stop: 09/07/23 05:59 Last Infusion: 09/06/23 13:44 Dose: Infused Documented By: Admin: 09/06/23 11:21 Dose: 100 mls/hr Documented By: PADMINI Lactated Ringer's (Lr) 1,000 mls @ 15 mls/hr IV .Q24H JALEN Stop: 10/06/23 11:14 Last Infusion: 09/06/23 11:19 Dose: Infused Documented By: Admin: 09/06/23 11:08 Dose: 15 mls/hr Documented By: DEBORAH Ioversol (Optiray 320 100ml) 94 ml IV ONCE ONE Stop: 09/05/23 15:41 Last Admin: 09/05/23 15:40 Dose: 94 ml Documented By: IVIS Ondansetron HCl (Ondansetron Inj 2 Mg/Ml 2 Ml Vial) 4 mg IV NOW STA Stop: 09/05/23 12:25 Last Admin: 09/05/23 13:03 Dose: 4 mg Documented By: MEENA Imaging Data Radiologist's Impression: Chest X-Ray 09/05/23 11:16 XR chest 1V portable HISTORY: Shortness of breath. COMPARISON: Chest 05/12/2023. FINDINGS: The lungs are clear. Cardiac silhouette is normal in size. No pleural effusions. No pneumothorax. Right sided neurostimulator device is again noted. IMPRESSION: No acute process. ACT 112: Negative or not required by law. Electronically signed by: Johnny Fried M.D. 09/05/2023 12:33 PM Abdomen/Pelvis CT 09/05/23 12:24 CT SCAN OF THE ABDOMEN AND PELVIS WITH IV CONTRAST CLINICAL HISTORY: Generalized abdominal pain. Nausea and constipation. COMPARISON STUDY: No priors. TECHNIQUE: Following the IV administration of 94 cc of Optiray 320, CT scan of the abdomen and pelvis is performed from the lung bases to the proximal femora. Images are reviewed in the axial, sagittal, and coronal planes. IV contrast was administered without complication. Oral contrast was utilized. A dose lowering technique was utilized adhering to the principles of ALARA. CT DOSE: 543.47 mGy.cm FINDINGS: Lung bases: The heart is normal in size and without pericardial effusion. A calcified granuloma is seen at the right lung base. The lung bases are otherwise clear noting bibasilar scarring/atelectasis. Liver: The contrast-enhanced liver is normal in size, contour, and attenuation. There is no intrahepatic biliary ductal dilatation. The hepatic veins and portal veins are patent. Gallbladder: Distended but otherwise normal in appearance. Spleen: Normal in size and attenuation. Pancreas: Moderately atrophic and grossly unremarkable. Adrenal glands: Unremarkable. Kidneys: The contrast enhanced kidneys are normal in size and without hydronephrosis. The kidneys enhance symmetrically. A 6 cm cyst is seen on the right. Additional subcentimeter cortical hypodensities likely represent cysts but are too small for definitive characterization. Abdominal vasculature: The abdominal aorta is normal in course and caliber noting mild atherosclerotic calcification. Stomach and bowel: There is a small hiatal hernia. The stomach and esophagus are distended with enteric contrast. The small bowel loops are markedly distended and fluid-filled, measuring up to 5 cm in diameter. There is incarcerated loop of small bowel within a left groin hernia. The small bowel distal to the hernia and colon are decompressed, and this is consistent with a high-grade obstruction. The transition point is best seen on axial image #304. There is trace interloop fluid. No pneumatosis intestinalis or portal venous gas is seen. There is mild colonic diverticulosis without CT evidence of acute diverticulitis. Fecal retention is noted in the right colon. The appendix is well-visualized and normal. Peritoneum: No intraperitoneal free air is identified. There is trace perihepatic ascites. Lymphadenopathy: None. Pelvic viscera: The bladder, uterus, and adnexa are normal as visualized. There is a bowel containing left inguinal hernia. Skeletal structures: The skeletal structures are osteopenic. Mild lumbosacral spondylosis is observed. No lytic or blastic lesions are seen. IMPRESSION: 1. High-grade small bowel obstruction secondary to an incarcerated left inguinal hernia. 2. No intraperitoneal free air is identified. There is no pneumatosis intestinalis or portal venous gas. There is trace interloop fluid and perihepatic ascites. 3. Additional findings as above. ACT 112: Negative or not required by law. Electronically signed by: Tyler Nj M.D. 09/05/2023 4:20 PM Discharge Plan Visit Data Chief Complaint: Illness Stated Complaint: LETHARGIC, NOT EATING OR DRINKING, NAUSEA ED Provider: Juany Angeles Discharge Problem: Dyspnea, Nausea, Constipation, SBO (small bowel obstruction), Incarcerated inguinal hernia Patient Disposition: Admitted As Inpatient Discharge Instructions Interventions: ED Discharge Assessment Last Done: 09/05/23 20:39
[2023-09-05 11:35] LABS: Basophils # (auto) 0.02 K/uL (0.00-0.20); Basophils % (auto) 0.2 %; Hematocrit (blood only) 41.4 % (37.0-47.0); Hemoglobin 13.8 g/dl (12.0-16.0); Immature Granulocytes # (auto) 0.04 K/uL (0.01-0.20); Immature Granulocytes % (auto) 0.3 %; Lymphocytes # (auto) 1.78 K/uL (1.20-3.40); Lymphocytes % (auto) 14.8 %; Mean Corpuscular Hemoglobin 30.1 pg (25.0-34.0); Mean Corpuscular Hgb Conc 33.3 g/dL (32.0-36.0); Mean Corpuscular Volume 90.2 fL (80.0-100.0); Mean Platelet Volume 10.7 fL (9.4-12.4); Monocytes # (auto) 1.23 K/uL (0.11-0.59); Monocytes % (auto) 10.3 %; Neutrophils # (auto) 8.93 K/uL (1.40-6.50); Neutrophils % (auto) 74.4 %; Platelet Count 297 K/uL (130-400); RDW Coefficient of Variation 13.2 % (11.5-14.5); RDW Standard Deviation 43.3 fL (36.4-46.3); Red Blood Count 4.59 M/uL (4.20-5.40)
[2023-09-05] MEDS: SODIUM CHLORIDE 0.9% 1,000 ML IV SCH (11:41)
[2023-09-05 11:50] LABS: Albumin Globulin Ratio 1.2 (0.9-2); Albumin Level 4.6 gm/dl (3.4-5.0); BUN Creatinine Ratio 44.7 (10-20); Bilirubin,Total 0.8 mg/dl (0.2-1.0); Calcium 10.8 mg/dl (8.6-10.3); Creatinine Clr Calc Pharmacy 46.3 ml/min; Est GFR (African American) 75.5 ml/min; Est GFR (Non-African American) 65.2 ml/min; Globulin 3.8 gm/dl (2.5-4.0); Potassium 3.8 mmol/L (3.5-5.1); Total Protein 8.4 gm/dl (6.0-8.3)
[2023-09-05 11:57] LABS: Troponin I High Sensitivity 9.2 pg/ml (0-14)
[2023-09-05 11:59] LABS: INR 1.1 (0.9-1.1); Prothrombin Time 11.4 Seconds (9.0-12.0)
--- NOTE | 2023-09-05 12:19 | Electrocardiogram Report ---
Test Reason : Blood Pressure : / mmHG Vent. Rate : 078 BPM Atrial Rate : 078 BPM P-R Int : 106 ms QRS Dur : 076 ms QT Int : 386 ms P-R-T Axes : 078 058 088 degrees QTc Int : 440 ms Sinus rhythm with Premature atrial complexes Nonspecific T wave abnormality Abnormal ECG When compared with ECG of 12-MAY-2023 01:00, Sinus rhythm has replaced Atrial flutter Vent. rate has decreased BY [address] less depressed in Inferior leads ST less depressed in Anterolateral leads T wave inversion no longer evident in Inferior leads Confirmed by Juan Pablo Pyle ([id number]) on 09/05/2023 12:19:20 PM Referred By: Confirmed By:Boni Pyle
--- NOTE | 2023-09-05 12:35 | XRay Report ---
XR chest 1V portable HISTORY: Shortness of breath. COMPARISON: Chest 05/12/2023. FINDINGS: The lungs are clear. Cardiac silhouette is normal in size. No pleural effusions. No pneumot horax. Right sided neurostimulator device is again noted. IMPRESSION: No acute process. ACT 112: Negative or not required by law. Electronically signed by: Johnny Fried M.D. 09/05/2023 12:33 PM
[2023-09-05 12:42] LABS: Adenovirus PCR Not Detected (NotDetected); Bordetella parapertussis PCR Not Detected (NotDetected); Bordetella pertussis PCR Not Detected (NotDetected); Chlamydia pneumoniae PCR Not Detected (NotDetected); Coronavirus 229E PCR Not Detected (NotDetected); Coronavirus CoV-2 (COVID19)PCR Not Detected (NotDetected); Coronavirus HKU1 PCR Not Detected (NotDetected); Coronavirus NL63 PCR Not Detected (NotDetected); Coronavirus OC43PCR Not Detected (NotDetected); Human Metapneumovirus PCR Not Detected (NotDetected); Influenza A PCR Not Detected (NotDetected); Influenza B PCR Not Detected (NotDetected); Mycoplasma pneumoniae PCR Not Detected (NotDetected); Parainfluenza Virus 1 PCR Not Detected (NotDetected); Parainfluenza Virus 2 PCR Not Detected (NotDetected); Parainfluenza Virus 3 PCR Not Detected (NotDetected); Parainfluenza Virus 4 PCR Not Detected (NotDetected); Respiratory Syncytial VirusPCR Not Detected (NotDetected); Rhinovirus/Enterovirus PCR Not Detected (NotDetected)
[2023-09-05] MEDS: FAMOTIDINE 20MG IV PUSH 20 MG/5 ML SYR IV STA (12:59)
[2023-09-05] MEDS: ONDANSETRON INJ 2 MG/ML 2 ML VIAL IV STA (13:03)
[2023-09-05 13:18] LABS: Appearance Urine Clear (Clear); Bacteria Urine Automated None Seen (None Seen); Bilirubin Urine 1+ (Negative); Blood Urine Negative (Negative); Cast Urine Automated 0-2 /lpf (0-2); Color Urine Dark Yellow; Glucose Urine UA Negative (Negative); Ketones Urine Trace (Negative); Leukocyte Esterase Urine Trace (Negative); Nitrite Urine Negative (Negative); Protein Urine 1+ (Negative); Urobilinogen Urine Negative (Negative); WBC Urine Automated 0-5 /hpf (0-5)
[2023-09-05] MEDS: OPTIRAY 320 100ml IV ONE (15:40)
--- NOTE | 2023-09-05 16:21 | CT Scan Report ---
CT SCAN OF THE ABDOMEN AND PELVIS WITH IV CONTRAST CLINICAL HISTORY: Generalized abdominal pain. Nausea and constipation. COMPARISON STUDY: No priors. TECHNIQUE: Following the IV administration of 94 cc of Optiray 320, CT scan of the abdomen and pelvi s is performed from the lung bases to the proximal femora. Images are reviewed in the axial, sagittal , and coronal planes. IV contrast was administered without complication. Oral contrast was utilized. A dose lowering technique was utilized adhering to the principles of ALARA. CT DOSE: 543.47 mGy.cm FINDINGS: Lung bases: The heart is normal in size and without pericardial effusion. A calcified granuloma is se en at the right lung base. The lung bases are otherwise clear noting bibasilar scarring/atelectasis. Liver: The contrast-enhanced liver is normal in size, contour, and attenuation. There is no intrahepa tic biliary ductal dilatation. The hepatic veins and portal veins are patent. Gallbladder: Distended but otherwise normal in appearance. Spleen: Normal in size and attenuation. Pancreas: Moderately atrophic and grossly unremarkable. Adrenal glands: Unremarkable. Kidneys: The contrast enhanced kidneys are normal in size and without hydronephrosis. The kidneys enh ance symmetrically. A 6 cm cyst is seen on the right. Additional subcentimeter cortical hypodensities likely represent cysts but are too small for definitive characterization. Abdominal vasculature: The abdominal aorta is normal in course and caliber noting mild atheroscleroti c calcification. Stomach and bowel: There is a small hiatal hernia. The stomach and esophagus are distended with enter ic contrast. The small bowel loops are markedly distended and fluid-filled, measuring up to 5 cm in d iameter. There is incarcerated loop of small bowel within a left groin hernia. The small bowel distal to the hernia and colon are decompressed, and this is consistent with a high-grade obstruction. The transition point is best seen on axial image #304. There is trace interloop fluid. No pneumatosis int estinalis or portal venous gas is seen. There is mild colonic diverticulosis without CT evidence of a cute diverticulitis. Fecal retention is noted in the right colon. The appendix is well-visualized an d normal. Peritoneum: No intraperitoneal free air is identified. There is trace perihepatic ascites. Lymphadenopathy: None. Pelvic viscera: The bladder, uterus, and adnexa are normal as visualized. There is a bowel containing left inguinal hernia. Skeletal structures: The skeletal structures are osteopenic. Mild lumbosacral spondylosis is observed . No lytic or blastic lesions are seen. IMPRESSION: 1. High-grade small bowel obstruction secondary to an incarcerated left inguinal hernia. 2. No intraperitoneal free air is identified. There is no pneumatosis intestinalis or portal venous g as. There is trace interloop fluid and perihepatic ascites. 3. Additional findings as above. ACT 112: Negative or not required by law. Electronically signed by: Tyler Nj M.D. 09/05/2023 4:20 PM
--- NOTE | 2023-09-05 17:16 | History & Physical Report ---
Date of Service September 05, 2023 Assessment & Plan (1) SBO (small bowel obstruction): Plan: Acute high-grade bowel obstruction CT-A/P: 1. High-grade small bowel obstruction secondary to an incarcerated left inguinal hernia.2. No intraperitoneal free air is identified. There is no pneumatosis intestinalis or portal venous gas. There is trace interloop fluid and perihepatic ascites. 3. Additional findings as above. Surgery consulted. Leukocytosis of 12, without left shift. Likely reactive Creatinine 0.85, lactate normal CXR without acute findings Echo 04/2023 performed for A-fib with EF 65 to 70% no regional wall motion abnormalities. No history of CHF RCRI class I risk Anticoagulated on Eliquis. Last dose evening of 09/03. Discussed w/ Dr. Llanes. If surgery may give 1 unit of Kcentra at time of surgery. Patient has a deep brain stimulator. Discussed with her neurosurgeon, Dr. Olivas is available at [phone]. She has her controller with her, this can be switched to surgery mode or alternatively turned off at time of surgery. Recommended minimizing monopolar cautery around the leads as able. Is available at aforementioned # for any questions or concerns. Discussed with surgery. As patient has minimal pain, normal lactate will perform serial exams overnight and anticipate surgery tomorrow morning. If she needs to be taken urgently overnight please contact Dr. Llanes to to reevaluate for need for Kcentra at that time Tylenol, scaled morphine pain control. Zofran on-call for nausea control (2) Incarcerated hernia: (3) Atrial fib/flutter, transient: Plan: A flutter, sick sinus syndrome, atrial fibrillation, tachybradycardia syndrome Follows with [facility]. Patient generally 60s on beta-ira with up titration for tachycardic episodes limited by intermittent 2-1 block with bradycardia. Patient was recommended for loop recorder, patient had not yet followed up for this Patient is on apixaban 5 mg twice daily Metoprolol 12.5 mg p.o. twice daily tartrate converted to 2.5 mg every 6 hours IV while n.p.o. to prevent beta-ira withdrawal (4) Parkinson disease: Plan: Parkinson's disease With deep brain stimulator, Yippy model [id number] implanted 2022 Stimulator management as aboveoral meds held for bowel obstruction and resume once able to tolerate p.o. Plan DVT prophylaxis: SCDs, pharmacal prophylaxis held pending surgery CODE STATUS: Full code Disposition: PCU Diet: Strict n.p.o. History of Present Illness Primary Care Provider: Maurizio Samuel DO Juany is a 78-year-old female with a past medical history of atrial fibrillation/flutter, sick sinus syndrome, gastroparesis, Parkinson's, trigeminal neuralgia, cognitive impairment who presents to the ER with abdominal pain who was found to have a high-grade bowel obstruction due to incarcerated left inguinal hernia. No free air or pneumatosis is seen. Trace noted fluid perihepatic ascites present. Juany is seen at the bedside. She reports that on Monday she developed discomfort when swallowing and some abdominal left lower quadrant discomfort, although most of her symptoms were just fell burping and discomfort with swallowing. This is progressively worsened and now has almost no appetite, nausea, and some shortness of breath with belching. Initially denies abdominal pain, but is tender to palpation at the left lower quadrant. She has not had a bowel movement in 2-3 weeks, minimal to no flatus. Feels that her NGT gave her some relief in the ER still feels poorly. Denies fever, chills, sweats. Denies history of abdominal surgery. Does have history of deep brain stimulator implantation in 2022 Has a history of a flutter/sick sinus syndrome/tachybradycardia syndrome on Eliquis. She did not take Eliquis this morning. Last dose of Eliquis approximately 9 PM last night. She reports that she is limited in exertion due to weakness and Parkinson's, but is generally able to walk downtown without any limiting chest pain. She does get short of breath fairly easily but this is not been associated with any sweats and she denies any history of heart failure, orthopnea, leg swelling. She has never been on diuretics. Denies history of kidney disease Discussed with her neurosurgeon Dr. Olivas is available at [phone]. She does have a Yippy brain stimulator that can either be placed on surgery mode or turned off for any surgeries. Patient has this controlled at bedside. Recommended minimizing monopolar cautery as able. Medical History: Reviewed Medications: Reviewed Surgical History: Reviewed Family history: Reviewed Allergies: Reviewed Social History: REviewed Code Status: Full Allergies Allergy/AdvReac Type Severity Reaction Status Date / Time pantoprazole [From Protonix] Allergy Severe SHORT OF Verified 09/04/23 10:54 BREATH, CHEST PAIN Penicillins Allergy Severe HIVES--PER Verified 09/04/23 10:54 GMG ANAPHYLAXIS cephalexin AdvReac Intermediate NAUSEA/VOMI Verified 09/04/23 10:54 TING epinephrine AdvReac Intermediate FELT Verified 09/04/23 10:54 STRANGE omeprazole AdvReac Intermediate TINNITUS Verified 09/04/23 10:54 procaine [From Novocain] AdvReac Intermediate Tachycardia Verified 09/04/23 10:54 sulfamethoxazole AdvReac Intermediate NAUSEA/VOMI Verified 09/04/23 10:54 [From Bactrim] TING trimethoprim [From Bactrim] AdvReac Intermediate NAUSEA/VOMI Verified 09/04/23 10:54 TING bacitracin AdvReac Mild REDNESS AT Verified 09/04/23 10:54 SITE OF APPLICATION Cephalosporins AdvReac Mild Nausea Verified 09/04/23 10:54 Home Medications Medication Instructions Recorded Confirmed Type melatonin 5 mg tablet 5 mg PO HS PRN Sleep 05/09/20 09/05/23 History entacapone 200 mg tablet 200 mg PO QID 02/02/21 09/05/23 History ropinirole 2 mg tablet,extended 6 mg PO HS 05/11/23 09/05/23 History release 24 hr cholecalciferol (vitamin D3) 25 50 mcg (2 x 25 mcg (1,000 unit)) 05/22/23 09/05/23 Rx mcg (1,000 unit) capsule (Vitamin PO QAM #90 caps D3) apixaban 5 mg tablet (Eliquis) 5 mg PO BID #180 tabs 06/14/23 09/05/23 Rx metoprolol tartrate 25 mg tablet 12.5 mg (1/2 x 25 mg) PO BID #60 08/10/23 09/05/23 Rx tabs carbidopa 25 mg-levodopa 100 mg 1.5 tab PO QID 09/04/23 09/05/23 History tablet Past Med/Surg History Problem List (Updated 09/05/23 @ 18:20 by oWo Cortez MD) Incarcerated hernia SBO (small bowel obstruction) Constipation (Acute) Nausea (Acute) Dyspnea (Acute) Tick bite of buttock SSS (sick sinus syndrome) Memory impairment Atrial flutter with rapid ventricular response (Acute) Atrial fib/flutter, transient OAB (overactive bladder) Vitamin D deficiency Persistent insomnia Dream enactment behavior Prediabetes Actinic keratosis Dysfunction of eustachian tube Trigeminal neuralgia R side Female stress incontinence Wrist pain, right De Quervain's tenosynovitis Rash Neck pain Cervical spine arthritis Dyslipidemia Gastroparesis HX Sensory hearing loss Parkinson disease (Acute) F/U DR JENNIFER HINTON HANNACROIX Azilect on hold since 07/07/21 per neuro instructions for 07/22/21 c-scope per nursing assessment Medical History Facial laceration History of humerus fracture (02/02/21) Hill-Sachs impaction fracture with fracture of the right humeral head with displaced fragment from a fall Positive colorectal cancer screening using Cologuard test Partial tear of tendon Right wrist tendinitis YUKO (generalized anxiety disorder) GERD (gastroesophageal reflux disease) Fall History of urinary tract infection Acute UTI Screening for breast cancer Shoulder pain, right S/P FALL -HEALING FRACTURE-NO SURGERY History of trigger finger Dermatitis Diaphragmatic hernia Celiac disease PT DENIES Asthma HX-RELATED TO GERD-NO INHALERS Drug induced constipation Surgical History Nausea and vomiting after administration of anesthetic agent History of surgical procedure - Revise eye muscle w/suture; for strabismus as young child - Treatment of anal fissure (1992) History of thumb surgery Incision of finger Tendon, trigger finger, thumb release History of D&C History of colonoscopy 06/19/2009 History of endoscopy Upper GI in 2008 & 2009 History of tubal ligation History of cataract surgery Bilateral History of carpal tunnel release Family History Grandmother (Paternal) Cancer Liver CA Family hx of colon cancer Mother , 63-64 yrs of age from [place] Heart disease Myocardial infarction Schizophrenia Brother Hypertension Daughter Bipolar disorder Hypertension Father Parkinsons disease Denies family history of Ovarian cancer Prostate cancer Breast cancer Colorectal cancer Social History Smoking Status: Never smoker Second Hand Exposure: No; Do You Dip or Chew Tobacco: No; Hx Alcohol Use: Yes Alcohol type: wine Alcohol Intake Frequency: 2-4 x/Month Alcohol Intake Frequency Comment: OCCASIONAL Hx Substance Use: No Preferred Language: [place] Communication Ability: Effective Contact Finger Assembler Required: No Beliefs That Will Affect Care: None marital status: Current Living Situation: Spouse Current Living Situation Comment: Lives with current occupational status: retired current occupation: Retired Speech Pathologist How many Children do You have: 3 Feels Safe at Home: Yes Childhood Exposure to Second-Hand Smoke: No Diet: regular caffeine: Yes (Coffee ) Dental Care, Regularly: Yes Physical Activity Frequency: 3-4 Times per Week Physical Activity Frequency Comment: 15mi on bike Seatbelt Use: always Sunscreen Use: Yes (Sometimes ) Assistive Devices: Cane and Hearing Aid - Bilateral Physical Exam Physical Exam: General: A&Ox3. NAD. Cooperative. HEENT: Atraumatic, normocephalic. Vision and hearing in place Pulm: CTAB A&P. -wheezes, -rales, -rhonchi. Symmetrical chest rise. No increased work of breathing. No respiratory distress. Cardiac: RRR, -mrg. Abdominal: Mild LLQ TTP. No rebound/guarding. Abd soft Ext: resting tremor in UE bilaterally. Sensation/strength in upper and lower extremities grossly intact without asymmetry. Results & Data Results & Data Vital Signs (Past 12 Hours) Vital Signs Temp Pulse Pulse Resp BP BP Pulse Ox 09/05/23 15:16 78 18 151/72 H 96 09/05/23 13:08 78 21 145/55 H 98 09/05/23 11:10 75 18 149/84 H 95 09/05/23 11:01 76 09/05/23 10:19 36.6 C 81 18 117/79 96 O2 Del Method 09/05/23 15:16 Room Air 09/05/23 13:08 Room Air 09/05/23 11:10 Room Air 09/05/23 11:01 09/05/23 10:19 Room Air PG Care Time/CCT Total # of Minutes Spent Total Time Spent with Patient: Total time spent is greater than 50% in coordination of care (as documented) at patient's floor/unit and/or counseling patient: Coding Level of Care Code 18500 INT INP/OBS CARE MIN Diagnoses SBO (small bowel obstruction) K56.609 Incarcerated hernia K46.0 Atrial fib/flutter, transient I48.91; I48.92 Parkinson disease G20.B2 Dyskinesia presence: with dyskinesia Fluctuating manifestations: with fluctuating manifestations (4) Parkinson disease Dyskinesia presence: with dyskinesia Fluctuating manifestations: with fluctuating manifestations Qualified Code(s): G20.B2 - Parkinson's disease with dyskinesia, with fluctuations
[2023-09-05] MEDS ORDERED: HYDROmorphone INJ 0.5 MG/0.5 ML SYR IV PRN (17:48)
[2023-09-05] MEDS ORDERED: HYDROmorphone INJ 1 MG/ML SYRINGE IV PRN (17:48)
[2023-09-05] MEDS ORDERED: ONDANSETRON INJ 2 MG/ML 2 ML VIAL IV PRN (17:48)
--- NOTE | 2023-09-05 18:33 | Surgery Consultation ---
Date of Consultation September 05, 2023 Assessment & Plan (1) Incarcerated hernia: Clearly this will need to be repaired. Because of her being on Eliquis I would like to wait until tomorrow. She did not take her dose today. She also needs rehydrated. There is no evidence currently of bowel ischemia as her lactic acid is normal and her exam is benign. I am going to plan on performing a laparoscopic approach so I can evaluate the bowel and ensure the small bowel obstruction resolves. We discussed potential risks which include bleeding, infection, injury to other organs such as bladder or ureter bowel etc., DVT, PE, [place], CVA etc. Dr. Carson also spoken to the patient's neurosurgeon and we do have a controller so that we can turn off the deep brain stimulator prior to surgery. She agrees with the plan. We will hydrate her tonight with anticipation of repair of the hernia tomorrow. Will be a laparoscopic left inguinal hernia repair with mesh. (2) SBO (small bowel obstruction): (3) SSS (sick sinus syndrome): (4) Atrial flutter with rapid ventricular response: (5) Parkinson disease: History of Present Illness History of Present Illness Juany is a pleasant 78-year-old female with a several day history of just not fe eling well. She had poor p.o. intake in some ranted belching. She really has not related any abdominal pain and no actual vomiting. Workup here in the emergency room shows an incarcerated left inguinal hernia with an associated small bowel obstruction. She states that she has never had abdominal surgery. Allergies Allergy/AdvReac Type Severity Reaction Status Date / Time pantoprazole [From Protonix] Allergy Severe SHORT OF Verified 09/04/23 10:54 BREATH, CHEST PAIN Penicillins Allergy Severe HIVES--PER Verified 09/04/23 10:54 GMG ANAPHYLAXIS cephalexin AdvReac Intermediate NAUSEA/VOMI Verified 09/04/23 10:54 TING epinephrine AdvReac Intermediate FELT Verified 09/04/23 10:54 STRANGE omeprazole AdvReac Intermediate TINNITUS Verified 09/04/23 10:54 procaine [From Novocain] AdvReac Intermediate Tachycardia Verified 09/04/23 10:54 sulfamethoxazole AdvReac Intermediate NAUSEA/VOMI Verified 09/04/23 10:54 [From Bactrim] TING trimethoprim [From Bactrim] AdvReac Intermediate NAUSEA/VOMI Verified 09/04/23 10:54 TING bacitracin AdvReac Mild REDNESS AT Verified 09/04/23 10:54 SITE OF APPLICATION Cephalosporins AdvReac Mild Nausea Verified 09/04/23 10:54 Home Medications Medication Instructions Recorded Confirmed Type melatonin 5 mg tablet 5 mg PO HS PRN Sleep 05/09/20 09/05/23 History entacapone 200 mg tablet 200 mg PO QID 02/02/21 09/05/23 History ropinirole 2 mg tablet,extended 6 mg PO HS 05/11/23 09/05/23 History release 24 hr cholecalciferol (vitamin D3) 25 50 mcg (2 x 25 mcg (1,000 unit)) 05/22/23 09/05/23 Rx mcg (1,000 unit) capsule (Vitamin PO QAM #90 caps D3) apixaban 5 mg tablet (Eliquis) 5 mg PO BID #180 tabs 06/14/23 09/05/23 Rx metoprolol tartrate 25 mg tablet 12.5 mg (1/2 x 25 mg) PO BID #60 08/10/23 09/05/23 Rx tabs carbidopa 25 mg-levodopa 100 mg 1.5 tab PO QID 09/04/23 09/05/23 History tablet Patient History Medical History Facial laceration History of humerus fracture (02/02/21) Hill-Sachs impaction fracture with fracture of the right humeral head with displaced fragment from a fall Positive colorectal cancer screening using Cologuard test Partial tear of tendon Right wrist tendinitis YUKO (generalized anxiety disorder) GERD (gastroesophageal reflux disease) Fall History of urinary tract infection Acute UTI Screening for breast cancer Shoulder pain, right S/P FALL -HEALING FRACTURE-NO SURGERY History of trigger finger Dermatitis Diaphragmatic hernia Celiac disease PT DENIES Asthma HX-RELATED TO GERD-NO INHALERS Drug induced constipation Surgical History Nausea and vomiting after administration of anesthetic agent History of surgical procedure - Revise eye muscle w/suture; for strabismus as young child - Treatment of anal fissure (1992) History of thumb surgery Incision of finger Tendon, trigger finger, thumb release History of D&C History of colonoscopy 06/19/2009 History of endoscopy Upper GI in 2008 & 2009 History of tubal ligation History of cataract surgery Bilateral History of carpal tunnel release Family History Grandmother (Paternal) Cancer Liver CA Family hx of colon cancer Mother , 63-64 yrs of age from [place] Heart disease Myocardial infarction Schizophrenia Brother Hypertension Daughter Bipolar disorder Hypertension Father Parkinsons disease Denies family history of Ovarian cancer Prostate cancer Breast cancer Colorectal cancer Social History Smoking Status: Never smoker Second Hand Exposure: No; Do You Dip or Chew Tobacco: No; Hx Alcohol Use: Yes Alcohol type: wine Alcohol Intake Frequency: 2-4 x/Month Alcohol Intake Frequency Comment: OCCASIONAL Hx Substance Use: No Preferred Language: Martiniquais Communication Ability: Effective Selvage Machine Operator Required: No Beliefs That Will Affect Care: None marital status: Current Living Situation: Spouse Current Living Situation Comment: Lives with current occupational status: retired current occupation: Retired Speech Pathologist How many Children do You have: 3 Feels Safe at Home: Yes Childhood Exposure to Second-Hand Smoke: No Diet: regular caffeine: Yes (Coffee ) Dental Care, Regularly: Yes Physical Activity Frequency: 3-4 Times per Week Physical Activity Frequency Comment: 15mi on bike Seatbelt Use: always Sunscreen Use: Yes (Sometimes ) Assistive Devices: Cane and Hearing Aid - Bilateral Review of Systems Review of Systems: All systems reviewed & are unremarkable except as noted in HPI & below Physical Exam Constitutional: WD/WN, vitals as above no acute distress and not ill appearing Eyes: PERRL, conjunctivae normal, anicteric sclerae EOM intact bilaterally ENMT: external ear and nose normal, oropharynx normal Ears: no hearing impairment Neck: trachea midline, no thyromegaly Respiratory: normal respiratory effort; no respiratory distress and does not use accessory muscles Cardiovascular: Rate/Rhythm: regular rate and regular rhythm Gastrointestinal (Abdomen): Soft. Nontender. Really minimal distention. No obvious left inguinal hernia palpable Skin: no rashes, warm and dry Psychiatric: Orientation: alert, oriented x 3 and cooperative Results & Data Vital Signs (Past 12 Hours) Vital Signs Temp Pulse Pulse Resp BP BP Pulse Ox 09/05/23 18:10 74 16 139/75 95 09/05/23 17:13 96 H 18 96 09/05/23 15:16 78 18 151/72 H 96 09/05/23 15:01 67 09/05/23 13:08 78 21 145/55 H 98 09/05/23 11:10 75 18 149/84 H 95 09/05/23 11:01 76 09/05/23 10:19 36.6 C 81 18 117/79 96 O2 Del Method 09/05/23 18:10 Room Air 09/05/23 17:13 Room Air 09/05/23 15:16 Room Air 09/05/23 15:01 09/05/23 13:08 Room Air 09/05/23 11:10 Room Air 09/05/23 11:01 09/05/23 10:19 Room Air PG Care Time/CCT Total # of Minutes Spent Total Time Spent with Patient: Total time spent is greater than 50% in coordination of care (as documented) at patient's floor/unit and/or counseling patient: Coding Level of Care Code 31754 INT INP/OBS CARE 75MIN Diagnoses Incarcerated hernia K46.0 SBO (small bowel obstruction) K56.609 SSS (sick sinus syndrome) I49.5 Atrial flutter with rapid ventricular response I48.92 Parkinson disease G20.B2 Dyskinesia presence: with dyskinesia Fluctuating manifestations: with fluctuating manifestations (5) Parkinson disease Dyskinesia presence: with dyskinesia Fluctuating manifestations: with fluctuating manifestations Qualified Code(s): G20.B2 - Parkinson's disease with dyskinesia, with fluctuations
[2023-09-05] MEDS: LACTATED RINGER'S 1,000 ML IV SCH (21:32)
[2023-09-06 06:47] LABS: Basophils # (auto) 0.02 K/uL (0.00-0.20); Basophils % (auto) 0.2 %; Eosinophils # (auto) 0.07 K/uL (0.00-0.50); Eosinophils % (auto) 0.7 %; Hematocrit (blood only) 38.6 % (37.0-47.0); Hemoglobin 12.8 g/dl (12.0-16.0); Immature Granulocytes # (auto) 0.02 K/uL (0.01-0.20); Immature Granulocytes % (auto) 0.2 %; Lymphocytes # (auto) 1.63 K/uL (1.20-3.40); Mean Corpuscular Hemoglobin 30.4 pg (25.0-34.0); Mean Corpuscular Hgb Conc 33.2 g/dL (32.0-36.0); Mean Corpuscular Volume 91.7 fL (80.0-100.0); Mean Platelet Volume 10.4 fL (9.4-12.4); Monocytes # (auto) 1.26 K/uL (0.11-0.59); Monocytes % (auto) 12.4 %; Neutrophils # (auto) 7.16 K/uL (1.40-6.50); Neutrophils % (auto) 70.5 %; Platelet Count 268 K/uL (130-400); RDW Coefficient of Variation 13.4 % (11.5-14.5); RDW Standard Deviation 45.3 fL (36.4-46.3); Red Blood Count 4.21 M/uL (4.20-5.40); White Blood Count 10.16 K/ul (4.8-10.8)
[2023-09-06 07:04] LABS: Prothrombin Time 11.2 Seconds (9.0-12.0)
[2023-09-06 07:06] LABS: Albumin Globulin Ratio 1.3 (0.9-2); Albumin Level 3.7 gm/dl (3.4-5.0); BUN Creatinine Ratio 37.3 (10-20); Bilirubin,Total 0.9 mg/dl (0.2-1.0); Calcium 9.5 mg/dl (8.6-10.3); Creatinine Clr Calc Pharmacy 52.5 ml/min; Est GFR (African American) 87.9 ml/min; Est GFR (Non-African American) 75.8 ml/min; Globulin 2.9 gm/dl (2.5-4.0); Potassium 3.9 mmol/L (3.5-5.1); Total Protein 6.6 gm/dl (6.0-8.3)
--- NOTE | 2023-09-06 09:48 | History & Physical Bridge Note ---
Date of Service September 06, 2023 History & Physical Bridge Note I have examined the patient, reviewed the History & Physical and in the interval since the performance of the History & Physical I have noted the following changes of clinical significance: no changes noted feeling ok. discussed options/risks ( bleeding/infection/injury to an organ/blood clots etc...) questions answered. will proceed with laparoscopic repair of LIH with mesh today. pt agreeable
[2023-09-06] MEDS ORDERED: fentaNYL citrate PF 100 MCG/2 ML VIAL ONE (09:49)
[2023-09-06] MEDS ORDERED: MIDAZOLAM HCL 1 MG/ML 2ML VIAL ONE (09:49)
[2023-09-06] MEDS ORDERED: METOCLOPRAMIDE HCL INJ 5 MG/ML 2 ML VIAL ONE (09:53)
[2023-09-06] MEDS ORDERED: PROPOFOL IV EMULSION 10 MG/ML 20 ML VIAL IV ONE (09:53)
[2023-09-06] MEDS ORDERED: ROCURONIUM BROMIDE 10 MG/ML 5 ML VIAL IV ONE (09:53)
[2023-09-06] MEDS ORDERED: LIDOCAINE 2% 2 ML VIAL/AMP(20MG/ML) INFIL ONE (09:53)
[2023-09-06] MEDS ORDERED: DEXAMETHASONE SOD INJ 4 MG/ML VIAL ONE (09:53)
[2023-09-06] MEDS ORDERED: ONDANSETRON INJ 2 MG/ML 2 ML VIAL ONE (09:53)
--- NOTE | 2023-09-06 10:02 | Hospitalist Progress Note ---
Date of Service September 06, 2023 Assessment & Plan (1) SBO (small bowel obstruction): Plan: 78-year-old woman with history of atrial fibrillation anticoagulated on Eliquis and history of Parkinson's with a deep brain stimulator presented with acute high-grade small bowel obstruction caused by incarcerated left inguinal hernia CT-A/P: 1. High-grade small bowel obstruction secondary to an incarcerated left inguinal hernia.2. No intraperitoneal free air is identified. There is no pneumatosis intestinalis or portal venous gas. There is trace interloop fluid and perihepatic ascites. 3. Additional findings as above. Surgery consulted. Leukocytosis of 12 now improved to 11, without left shift. Likely reactive Creatinine remains normal at 0.75, lactate normal CXR without acute findings Echo 04/2023 performed for A-fib with EF 65 to 70% no regional wall motion abnormalities. No history of CHF RCRI class I risk Anticoagulated on Eliquis. Last dose evening of 09/03. Patient has a deep brain stimulator. Discussed with her neurosurgeon, Dr. Olivas is available at [phone]. She has her controller with her, this can be switched to surgery mode or alternatively turned off at time of surgery. Recommended minimizing monopolar cautery around the leads as able. Is available at aforementioned # for any questions or concerns. planned for surgery today, continue NG tube at this time Tylenol, scaled morphine pain control. Zofran on-call for nausea control (2) Incarcerated hernia: Plan: see above (3) Atrial fib/flutter, transient: Plan: A flutter, sick sinus syndrome, atrial fibrillation, tachybradycardia syndrome Follows [facility]. Patient generally 60s on beta-ira with up titration for tachycardic episodes limited by intermittent 2-1 block with bradycardia. Patient was recommended for loop recorder, patient had not yet followed up for this Patient is on apixaban 5 mg twice daily ( held) Metoprolol 12.5 mg p.o. twice daily tartrate converted to 2.5 mg every 6 hours IV while n.p.o. to prevent beta-ira withdrawal (4) Parkinson disease: Plan: Parkinson's disease With deep brain stimulator, [employer] model [id number] implanted 2022 Stimulator management as aboveoral meds held for bowel obstruction and resume once able to tolerate p.o. Plan DVT prophylaxis: SCDs, pharmacal prophylaxis held pending surgery CODE STATUS: Full code Disposition: PCU Diet: Strict n.p.o. Admission and Anticipated Discharge Date Admission Date: September 05, 2023 Subjective Juany is feeling okay today her main complaint is soreness from the NG tube however she does not have any abdominal pain nausea or vomiting she is not passing any flatus or stool no shortness of breath chest pain or cough Physical Exam 2 Physical Exam: PHYSICAL EXAMINATION Last 24h vital signs reviewed, see documentation in flowsheet General: elderly woman awake in bed, comfortable appearing, no distress HEENT: Normocephalic, atraumatic, pupils round and equal, sclerae anicteric, no conjunctival injection, dry mucus membranes, NG tube in place with feculent appearing drainage in canister Lungs: Normal respiratory effort. Clear to auscultation bilaterally. No RRW Heart: Regular rate and rhythm, no murmurs. No JVD Abdomen: Soft, nontender, nondistended. Bowel sounds present. left inguinal area nontender Extremities: Warm, dry, well-perfused. No extremity edema. Neuro: Alert and oriented x 4, face symmetric, moves 4 extremities well Psych: Normal affect and behavior Results & Data Results & Data Vital Signs (Past 12 Hours) Vital Signs Temp Pulse Pulse Resp BP Pulse Ox O2 Del Method 09/06/23 08:00 81 09/06/23 08:00 36.7 C 78 20 135/66 18 L Room Air 09/06/23 02:57 36.5 C 86 18 125/69 94 Room Air 09/05/23 22:05 71 09/05/23 21:59 80 Laboratory Results 09/06/23 06:10 09/06/23 06:10 PG Care Time/CCT Total # of Minutes Spent Total Time Spent with Patient: Total time spent is greater than 50% in coordination of care (as documented) at patient's floor/unit and/or counseling patient: Coding Level of Care Code 39098 SUB INP/OBS CARE 2/35MIN Diagnoses SBO (small bowel obstruction) K56.609 Incarcerated hernia K46.0 Atrial fib/flutter, transient I48.91; I48.92 Parkinson disease G20.B2 Dyskinesia presence: with dyskinesia Fluctuating manifestations: with fluctuating manifestations (4) Parkinson disease Dyskinesia presence: with dyskinesia Fluctuating manifestations: with fluctuating manifestations Qualified Code(s): G20.B2 - Parkinson's disease with dyskinesia, with fluctuations
[2023-09-06] MEDS: LACTATED RINGER'S 1,000 ML IV SCH (11:08)
[2023-09-06] MEDS: CLINDAMYCIN/D5W 900 MG/50 ML BAG IV SCH (11:21)
--- NOTE | 2023-09-06 11:23 | Anesthesiology Consultation ---
Date of Service September 06, 2023 Assessment & Plan Chart Review Chart Review: Acceptable Risk for Surgery and Patient NOT seen in Pre Admission Testing Consults Requested none History Surgery Operation Date: 09/06/23 09:10 Proposed Procedures p Left Laparoscopic Incarcerated Inguinal Hernia Repair wish Mesh - Hernesto Velazquez, DO Height/Weight Height: 5 ft 4 in Weight: 56 kg Allergies Allergy/AdvReac Type Severity Reaction Status Date / Time pantoprazole [From Protonix] Allergy Severe SHORT OF Verified 09/04/23 10:54 BREATH, CHEST PAIN Penicillins Allergy Severe HIVES--PER Verified 09/04/23 10:54 GMG ANAPHYLAXIS cephalexin AdvReac Intermediate NAUSEA/VOMI Verified 09/04/23 10:54 TING epinephrine AdvReac Intermediate FELT Verified 09/04/23 10:54 STRANGE omeprazole AdvReac Intermediate TINNITUS Verified 09/04/23 10:54 procaine [From Novocain] AdvReac Intermediate Tachycardia Verified 09/04/23 10:54 sulfamethoxazole AdvReac Intermediate NAUSEA/VOMI Verified 09/04/23 10:54 [From Bactrim] TING trimethoprim [From Bactrim] AdvReac Intermediate NAUSEA/VOMI Verified 09/04/23 10:54 TING bacitracin AdvReac Mild REDNESS AT Verified 09/04/23 10:54 SITE OF APPLICATION Cephalosporins AdvReac Mild Nausea Verified 09/04/23 10:54 Medications Home Medications Medication Instructions Recorded Confirmed Last Taken melatonin 5 mg tablet 5 mg PO HS PRN Sleep 05/09/20 09/05/23 12/08/21 entacapone 200 mg tablet 200 mg PO QID 02/02/21 09/05/23 05/10/23 ropinirole 2 mg tablet,extended 6 mg PO HS 05/11/23 09/05/23 05/09/23 release 24 hr cholecalciferol (vitamin D3) 25 50 mcg (2 x 25 mcg (1,000 unit)) 05/22/23 09/05/23 Unknown mcg (1,000 unit) capsule (Vitamin PO QAM #90 caps D3) apixaban 5 mg tablet (Eliquis) 5 mg PO BID #180 tabs 06/14/23 09/05/23 Unknown metoprolol tartrate 25 mg tablet 12.5 mg (1/2 x 25 mg) PO BID #60 08/10/23 09/05/23 Unknown tabs carbidopa 25 mg-levodopa 100 mg 1.5 tab PO QID 09/04/23 09/05/23 Unknown tablet Active Medications Generic Name Dose Route Start Last Admin Trade Name Yohannes PRN Reason Stop Dose Admin Lactated Ringer's 1,000 mls @ 125 mls/hr 09/05/23 18:00 09/06/23 05:18 Lr IV 10/05/23 17:59 125 mls/hr .Q8H JALEN Administration Lactated Ringer's 1,000 mls @ 15 mls/hr 09/06/23 11:15 09/06/23 11:19 Lr IV 10/06/23 11:14 Infused .Q24H JALEN Infusion NPO Date Last Intake of Fluids: 09/05/23 Date Last Intake of Solids: 09/04/23 Past Medical History Medical History Facial laceration History of humerus fracture (02/02/21) Hill-Sachs impaction fracture with fracture of the right humeral head with displaced fragment from a fall Positive colorectal cancer screening using Cologuard test Partial tear of tendon Right wrist tendinitis YUKO (generalized anxiety disorder) GERD (gastroesophageal reflux disease) Fall History of urinary tract infection Acute UTI Screening for breast cancer Shoulder pain, right S/P FALL -HEALING FRACTURE-NO SURGERY History of trigger finger Dermatitis Diaphragmatic hernia Celiac disease PT DENIES Asthma HX-RELATED TO GERD-NO INHALERS Drug induced constipation Past Family History Family History Grandmother (Paternal) Cancer Liver CA Family hx of colon cancer Mother , 63-64 yrs of age from [place] Heart disease Myocardial infarction Schizophrenia Brother Hypertension Daughter Bipolar disorder Hypertension Father Parkinsons disease Denies family history of Ovarian cancer Prostate cancer Breast cancer Colorectal cancer Past Surgical History Surgical History Nausea and vomiting after administration of anesthetic agent History of surgical procedure - Revise eye muscle w/suture; for strabismus as young child - Treatment of anal fissure (1992) History of thumb surgery Incision of finger Tendon, trigger finger, thumb release History of D&C History of colonoscopy 06/19/2009 History of endoscopy Upper GI in 2008 & 2009 History of tubal ligation History of cataract surgery Bilateral History of carpal tunnel release Social History Smoking Status: Never smoker Do You Dip or Chew Tobacco: No Hx Alcohol Use: Yes Alcohol type: wine alcohol intake frequency: a few times a week Hx Substance Use: No substance use type: does not use Physical Exam Vital Signs Last Vital Signs Temp 36.8 C 09/06/23 11:01 Pulse 88 09/06/23 11:01 Resp 20 09/06/23 11:01 BP 135/73 09/06/23 11:01 Pulse Ox 95 09/06/23 11:01 O2 Del Method Room Air 09/06/23 11:01 Testing Laboratory Results 09/06/23 06:10 09/06/23 06:10 PT 11.2 Seconds (9.0-12.0) 09/06/23 06:10 INR 1.0 (0.9-1.1) 09/06/23 06:10 Urine Color Dark Yellow 09/05/23 12:50 Urine Appearance Clear (Clear) 09/05/23 12:50 Urine pH 6.0 (4.5-7.5) 09/05/23 12:50 Ur Specific [place] 1.030 (1.000-1.030) 09/05/23 12:50 Urine Protein 1+ (Negative) H 09/05/23 12:50 Urine Glucose (UA) Negative (Negative) 09/05/23 12:50 Urine Ketones Trace (Negative) H 09/05/23 12:50 Urine Nitrite Negative (Negative) 09/05/23 12:50 Ur Leukocyte Esterase Trace (Negative) H 09/05/23 12:50 Urine WBC (Auto) 0-5 /hpf (0-5) 09/05/23 12:50 Urine RBC (Auto) 3-5 /hpf (0-2) H 09/05/23 12:50 U Hyaline Cast (Auto) 0-2 /lpf (0-2) 09/05/23 12:50 U Epithel Cells (Auto) 3-5 /hpf (0-2) H 09/05/23 12:50 Urine Bacteria (Auto) None Seen (None Seen) 09/05/23 12:50 Blood Type A Negative 09/05/23 18:54 Antibody Screen NEGATIVE 09/05/23 18:54
[2023-09-06] MEDS ORDERED: SUGAMMADEX SODIUM 200 MG/2 ML VIAL IV ONE (12:08)
[2023-09-06] MEDS ORDERED: PHENYLEPHRINE 100MCG/ML 10ML SYR IV ONE (12:16)
[2023-09-06] MEDS: BUPIVACAINE/EPINEPHRINE 0.5% MPF 1:200,000 30 ML VIAL ONE (12:20)
--- NOTE | 2023-09-06 12:27 | Operative Report ---
[facility] Post Operative Report Pre & Post Diagnosis Operation Date: 09/06/23 09:10 Pre-Op Diagnosis: Incarcerated Hernia, Small Bowel Obstruction Post-Op Diagnosis: Incarcerated Hernia, Small Bowel Obstruction I identified the patient and participated in the time-out.: Yes Procedure Operation Date: 09/06/23 09:10 Actual Procedures p Laparoscopic Incarcerated Left Inguinal Hernia Repair with Mesh, Reduction of Small Bowel Obstruction(Left) - Hernesto Velazquez DO Surgeon Hernesto Velazquez DO Day Care Aide melanie wilkins Estimated Blood Loss 5 Findings Consistent with Post-Op Diagnosis Specimens none Description of Procedure After informed consent was obtained the patient was taken the operating room and placed in supine position. After successful intubation a Jarquin catheter was placed sterilely. Both arms were tucked and the abdomen was sterilely prepped and draped in usual fashion. I began with a supraumbilical incision. This was carried down through soft tissue using cautery. Anterior fascia was opened using cautery and two #0 Vicryl stay sutures were placed. Peritoneum was elevated using hemostats incised under direct vision using Metzenbaum scissor. Finger sweep was performed. A 12 mm Austin trocar was placed and the abdomen was insufflated to 18 mmHg. Laparoscope was inserted and the abdomen examined 360 degrees. There was dilated small bowel throughout. There was an incarcerated left inguinal hernia with decompressed bowel distal. This was clearly the site of obstruction. I placed a right mid abdominal 5 mm trocar and a right upper quadrant 5 m trocar. With gentle traction internally and manual pressure externally we were able to eventually reduce the small bowel. There was a small probably 1 inch segment with some mild ischemia however no evidence of infarction and no serosal damage. We placed the patient in Trendelenburg position. After taking down the hernia sac I used a 10 cm circular surgi-mesh which was rolled up and placed into the abdomen. It was placed such that the antiadhesive barrier was facing the bowel. I used a Protack device to secure it. I placed several tacks above the iliopubic tract and 1 tack into the pubic bone. Mesh laid nice and flat and tension-free. We returned to look at the small portion of incarcerated small bowel and it continued to look better and better and I therefore opted not to resect it. No other gross abnormalities were identified. The trocars were all removed and the abdomen desufflated. The fascia of the camera port was closed using 0 Vicryl in a [id number] fashion. All wounds were irrigated and closed using 4-0 Monocryl. Marcaine with epinephrine was injected around for postoperative analgesia and skin glue used as a dressing. The patient was awakened extubated and transferred to recovery in stable condition. I attest to the content of the Intraoperative Record and any orders documented therein. Any exceptions are noted below.
[2023-09-06] MEDS ORDERED: ATROPINE SULFATE 0.1 MG/ML 10ML SYR IV PRN (12:59)
[2023-09-06] MEDS ORDERED: ePHEDrine sulfate 50 MG/ML AMP IV PRN (12:59)
[2023-09-06] MEDS ORDERED: ONDANSETRON INJ 2 MG/ML 2 ML VIAL IV PRN (12:59)
[2023-09-06] MEDS ORDERED: HYDROmorphone INJ 1 MG/ML SYRINGE IV PRN (12:59)
--- NOTE | 2023-09-06 13:25 | Anesthesiology Progress Note ---
Date of Service September 06, 2023 Anesthesia Post Procedure Vital Signs Vital Signs: Temp Pulse Pulse Pulse Resp BP Pulse Ox 09/06/23 13:20 76 16 124/62 98 09/06/23 13:10 98.2 F 75 16 126/62 98 09/06/23 13:00 73 16 140/66 99 09/06/23 12:50 78 16 156/74 H 100 09/06/23 12:40 73 20 142/84 H 100 09/06/23 12:30 97.7 F 76 16 130/43 L 99 09/06/23 11:01 98.2 F 88 20 135/73 95 09/06/23 08:00 81 09/06/23 08:00 98.1 F 78 20 135/66 18 L 09/06/23 02:57 97.7 F 86 18 125/69 94 09/05/23 22:05 71 09/05/23 21:59 80 09/05/23 21:35 09/05/23 21:30 98.6 F 81 16 144/86 H 94 09/05/23 19:15 67 09/05/23 18:10 74 16 139/75 95 09/05/23 17:13 96 H 18 96 09/05/23 15:16 78 18 151/72 H 96 09/05/23 15:01 67 O2 Del Method O2 Flow Rate 09/06/23 13:20 Oxymask 2 09/06/23 13:10 Oxymask 2 09/06/23 13:00 Oxymask 4 09/06/23 12:50 Oxymask 4 09/06/23 12:40 Oxymask 4 09/06/23 12:30 Oxymask 6 09/06/23 11:01 Room Air 09/06/23 08:00 09/06/23 08:00 Room Air 09/06/23 02:57 Room Air 09/05/23 22:05 09/05/23 21:59 09/05/23 21:35 Room Air 09/05/23 21:30 Room Air 09/05/23 19:15 09/05/23 18:10 Room Air 09/05/23 17:13 Room Air 09/05/23 15:16 Room Air 09/05/23 15:01 Pain Intensity Abdomen: Pain Intensity: 3 Transfer of Care Handoff Completed per policy Notes Mental Status: alert / awake / arousable and participated in evaluation Patient Amnestic to Procedure: Yes Nausea / Vomiting: adequately controlled Pain: adequately controlled Airway Patency, RR, SpO2: stable & adequate BP & HR: stable & adequate Hydration State: stable & adequate Anesthetic Complications: no major complications apparent and Pt Satisfied with anesthetic care
--- NOTE | 2023-09-06 13:30 | Anesthesiology Progress Note ---
Date of Service September 06, 2023 Anesthesia Post Procedure Vital Signs Vital Signs: Temp Pulse Pulse Pulse Resp BP Pulse Ox 09/06/23 13:20 76 16 124/62 98 09/06/23 13:10 36.8 C 75 16 126/62 98 09/06/23 13:00 73 16 140/66 99 09/06/23 12:50 78 16 156/74 H 100 09/06/23 12:40 73 20 142/84 H 100 09/06/23 12:30 36.5 C 76 16 130/43 L 99 09/06/23 11:01 36.8 C 88 20 135/73 95 09/06/23 08:00 81 09/06/23 08:00 36.7 C 78 20 135/66 18 L 09/06/23 02:57 36.5 C 86 18 125/69 94 09/05/23 22:05 71 09/05/23 21:59 80 09/05/23 21:35 09/05/23 21:30 37 C 81 16 144/86 H 94 09/05/23 19:15 67 09/05/23 18:10 74 16 139/75 95 09/05/23 17:13 96 H 18 96 09/05/23 15:16 78 18 151/72 H 96 09/05/23 15:01 67 O2 Del Method O2 Flow Rate 09/06/23 13:20 Oxymask 2 09/06/23 13:10 Oxymask 2 09/06/23 13:00 Oxymask 4 09/06/23 12:50 Oxymask 4 09/06/23 12:40 Oxymask 4 09/06/23 12:30 Oxymask 6 09/06/23 11:01 Room Air 09/06/23 08:00 09/06/23 08:00 Room Air 09/06/23 02:57 Room Air 09/05/23 22:05 09/05/23 21:59 09/05/23 21:35 Room Air 09/05/23 21:30 Room Air 09/05/23 19:15 09/05/23 18:10 Room Air 09/05/23 17:13 Room Air 09/05/23 15:16 Room Air 09/05/23 15:01 Pain Intensity Abdomen: Pain Intensity: 3 Transfer of Care Handoff Completed per policy Notes Mental Status: alert / awake / arousable and participated in evaluation Nausea / Vomiting: adequately controlled Pain: adequately controlled Airway Patency, RR, SpO2: stable & adequate BP & HR: stable & adequate Hydration State: stable & adequate Anesthetic Complications: no major complications apparent and Pt Satisfied with anesthetic care
[2023-09-06] MEDS: FAMOTIDINE/PF 20 MG/2 ML VIAL IV ONE (13:44)
[2023-09-06] MEDS: METOPROLOL TARTRATE 1 MG/ML VIAL IV SCH (23:00)
[2023-09-07 06:46] LABS: Basophils # (auto) 0.03 K/uL (0.00-0.20); Basophils % (auto) 0.2 %; Eosinophils # (auto) 0.11 K/uL (0.00-0.50); Eosinophils % (auto) 0.9 %; Hematocrit (blood only) 36.3 % (37.0-47.0); Hemoglobin 11.9 g/dl (12.0-16.0); Immature Granulocytes # (auto) 0.05 K/uL (0.01-0.20); Immature Granulocytes % (auto) 0.4 %; Lymphocytes # (auto) 2.13 K/uL (1.20-3.40); Lymphocytes % (auto) 17.2 %; Mean Corpuscular Hemoglobin 30.8 pg (25.0-34.0); Mean Corpuscular Hgb Conc 32.8 g/dL (32.0-36.0); Mean Platelet Volume 10.8 fL (9.4-12.4); Monocytes # (auto) 1.62 K/uL (0.11-0.59); Monocytes % (auto) 13.1 %; Neutrophils # (auto) 8.41 K/uL (1.40-6.50); Neutrophils % (auto) 68.2 %; Platelet Count 245 K/uL (130-400); RDW Coefficient of Variation 13.2 % (11.5-14.5); RDW Standard Deviation 45.5 fL (36.4-46.3); Red Blood Count 3.86 M/uL (4.20-5.40); White Blood Count 12.35 K/ul (4.8-10.8)
[2023-09-07 07:09] LABS: Albumin Globulin Ratio 1.3 (0.9-2); Albumin Level 3.1 gm/dl (3.4-5.0); BUN Creatinine Ratio 30.4 (10-20); Bilirubin,Total 0.7 mg/dl (0.2-1.0); Calcium 8.3 mg/dl (8.6-10.3); Creatinine Clr Calc Pharmacy 57.1 ml/min; Est GFR (Non-African American) 82.8 ml/min; Globulin 2.4 gm/dl (2.5-4.0); Potassium 3.8 mmol/L (3.5-5.1); Total Protein 5.5 gm/dl (6.0-8.3)
--- NOTE | 2023-09-07 11:01 | XRay Report ---
KUB HISTORY: Small bowel obstruction. Follow-up. eval bowel/gas pattern COMPARISON: Abdomen and pelvis CT 09/05/2023. FINDINGS: Nasogastric tube terminates in the stomach. Dilated gas-filled loops of small bowel are aga in noted predominantly the left side the abdomen measuring up to 4 cm consistent with the patient's k nown small bowel obstruction. There is gas and stool remaining within the colon. No renal calculi. N o ureteral calculi. No pneumoperitoneum or pneumatosis. IMPRESSION: 1. Nasogastric tube terminates in the stomach. 2. Persistent small bowel obstruction pattern. ACT 112: Negative or not required by law. Electronically signed by: Johnny Fried M.D. 09/07/2023 10:59 AM
--- NOTE | 2023-09-07 12:49 | Surgery Progress Note ---
Date of Service September 07, 2023 Assessment & Plan (1) Incarcerated inguinal hernia: Plan: POD#1 laparoscopic inguinal hernia repair and reduction of SBO WBC 12, Hbg 11.9. Vitals are stable NGT with 600cc documented KUB shows findings of some small bowel distention She believes she is passing some gas Continue ngt for now we will f/u again this afternoon as above. doing ok. very thirsty. passing flatus. no n/v. minimal pain. abd: non -distended. NGT with almost no output. will d/c ngt and start clears and see how she does. (2) SBO (small bowel obstruction): Admission and Anticipated Discharge Date Admission Date: September 05, 2023 Subjective Patient feeling okay. Pain is manageable. Denies nausea. Thinks she is passing some gas. No BM. Reports discomfort from NGT Physical Exam Physical Exam: awake/alert, no distress Respiratory: normal respiratory effort Gastrointestinal (Abdomen): Inspection/Auscultation: + abdominal surgical incision (c/d/i ); abdomen not distended Percussion/Palpation: + abdomen tender (expected esther incisional discomfort to palpation) and abdomen soft Results & Data Vital Signs (Past 12 Hours) Vital Signs Temp Pulse Pulse Resp BP BP Pulse Ox 09/07/23 10:55 97.9 F 79 20 128/64 95 09/07/23 10:05 76 09/07/23 09:50 80 09/07/23 07:39 67 09/07/23 07:27 97.5 F L 70 19 130/58 L 95 09/07/23 04:40 67 124/66 09/07/23 04:25 75 140/65 09/07/23 04:23 75 140/65 09/07/23 02:45 97.7 F 58 L 16 106/54 L 96 O2 Del Method 09/07/23 10:55 Room Air 09/07/23 10:05 09/07/23 09:50 09/07/23 07:39 09/07/23 07:27 Room Air 09/07/23 04:40 09/07/23 04:25 09/07/23 04:23 09/07/23 02:45 Room Air PG Care Time/CCT Total # of Minutes Spent Total Time Spent with Patient: Total time spent is greater than 50% in coordination of care (as documented) at patient's floor/unit and/or counseling patient: Coding Level of Care Code 64744 Post Operative Follow-Up Diagnoses Incarcerated inguinal hernia K40.30 SBO (small bowel obstruction) K56.609
--- NOTE | 2023-09-07 16:42 | Hospitalist Progress Note ---
Date of Service September 07, 2023 Assessment & Plan (1) SBO (small bowel obstruction): Plan: 78-year-old woman with history of atrial fibrillation anticoagulated on Eliquis and history of Parkinson's with a deep brain stimulator presented with acute high-grade small bowel obstruction caused by incarcerated left inguinal hernia CT-A/P: 1. High-grade small bowel obstruction secondary to an incarcerated left inguinal hernia.2. No intraperitoneal free air is identified. There is no pneumatosis intestinalis or portal venous gas. There is trace interloop fluid and perihepatic ascites. 3. Additional findings as above. Surgery consulted. -- underwent laparoscopic left inguinal hernia repair with mesh by Dr. Velazquez 09/05 -- continues n.p.o. with NG tube awaiting return of bowel function -- personally reviewed KUB film from this morning shows continued small bowel distention -- a.m. BMP, mag. monitor exam and NG output -- PT/OT eval (2) Incarcerated hernia: Plan: see above (3) Atrial fib/flutter, transient: Plan: A flutter, sick sinus syndrome, atrial fibrillation, tachybradycardia syndrome TTE this admission showed normal EF 65-70% no RWMA's, borderline aortic stenosis and mild AR Follows with [facility] cardiology. Patient generally 60s on beta-ira with up titration for tachycardic episodes limited by intermittent 2-1 block with bradycardia. Patient was recommended for loop recorder, patient had not yet followed up for this Patient is on apixaban 5 mg twice daily ( held) Metoprolol 12.5 mg p.o. twice daily tartrate converted to 2.5 mg every 6 hours IV while n.p.o. (4) Parkinson disease: Plan: Parkinson's disease With deep brain stimulator, [employer] model [id number] implanted 2022 oral meds held for bowel obstruction and resume once able to tolerate p.o. Plan DVT prophylaxis: SCDs, subcu heparin until apixaban can be resumed CODE STATUS: Full code Admission and Anticipated Discharge Date Admission Date: September 05, 2023 Mayra Harrington is doing pretty well postop she does not have a lot of pain or nausea she thinks she passed some gas overnight, still has NG tube and is n.p.o. Physical Exam 2 Physical Exam: PHYSICAL EXAMINATION Last 24h vital signs reviewed, see documentation in flowsheet General: awake reclining in bed, still has NG tube in place HEENT: Normocephalic, atraumatic, pupils round and equal, sclerae anicteric, no conjunctival injection, dry mucus membranes, NG tube in place with brownish drainage in canister Lungs: Normal respiratory effort. Clear to auscultation bilaterally. No RRW Heart: Regular rate and rhythm, no murmurs. No JVD Abdomen: Soft, mildlydistended. nontender Bowel sounds present. laparotomy incisions well opposed no erythema or drainage Extremities: Warm, dry, well-perfused. No extremity edema. Neuro: Alert and oriented x place and basics of situation, face symmetric, moves 4 extremities well Psych: Normal affect and behavior Results & Data Results & Data Vital Signs (Past 12 Hours) Vital Signs Temp Pulse Pulse Resp BP BP Pulse Ox 09/07/23 15:15 37.0 C 73 19 137/67 96 09/07/23 10:55 36.6 C 79 20 128/64 95 09/07/23 10:05 76 09/07/23 09:50 80 09/07/23 07:39 67 09/07/23 07:27 36.4 C L 70 19 130/58 L 95 09/07/23 04:40 67 124/66 O2 Del Method 09/07/23 15:15 Room Air 09/07/23 10:55 Room Air 09/07/23 10:05 09/07/23 09:50 09/07/23 07:39 09/07/23 07:27 Room Air 09/07/23 04:40 Laboratory Results 09/07/23 05:19 09/07/23 05:19 PG Care Time/CCT Total # of Minutes Spent Total Time Spent with Patient: Total time spent is greater than 50% in coordination of care (as documented) at patient's floor/unit and/or counseling patient: Coding Level of Care Code 25459 SUB INP/OBS CARE 2/35MIN Diagnoses SBO (small bowel obstruction) K56.609 Incarcerated hernia K46.0 Atrial fib/flutter, transient I48.91; I48.92 Parkinson disease G20.B2 Dyskinesia presence: with dyskinesia Fluctuating manifestations: with fluctuating manifestations (4) Parkinson disease Dyskinesia presence: with dyskinesia Fluctuating manifestations: with fluctuating manifestations Qualified Code(s): G20.B2 - Parkinson's disease with dyskinesia, with fluctuations
[2023-09-07] MEDS: ACETAMINOPHEN 1,000 MG/100 ML VIAL IV PRN (18:29)
[2023-09-07] MEDS: HEPARIN SOD 5,000 UNIT/0.5 ML VIAL SQ SCH (20:16)
[2023-09-08 07:02] LABS: Basophils # (auto) 0.05 K/uL (0.00-0.20); Basophils % (auto) 0.4 %; Eosinophils # (auto) 0.27 K/uL (0.00-0.50); Eosinophils % (auto) 2.1 %; Hematocrit (blood only) 35.1 % (37.0-47.0); Hemoglobin 11.7 g/dl (12.0-16.0); Immature Granulocytes # (auto) 0.02 K/uL (0.01-0.20); Immature Granulocytes % (auto) 0.2 %; Lymphocytes # (auto) 1.86 K/uL (1.20-3.40); Lymphocytes % (auto) 14.8 %; Mean Corpuscular Hemoglobin 31.1 pg (25.0-34.0); Mean Corpuscular Hgb Conc 33.3 g/dL (32.0-36.0); Mean Corpuscular Volume 93.4 fL (80.0-100.0); Mean Platelet Volume 10.4 fL (9.4-12.4); Monocytes # (auto) 1.33 K/uL (0.11-0.59); Monocytes % (auto) 10.5 %; Neutrophils # (auto) 9.08 K/uL (1.40-6.50); Platelet Count 222 K/uL (130-400); RDW Coefficient of Variation 13.1 % (11.5-14.5); RDW Standard Deviation 44.8 fL (36.4-46.3); Red Blood Count 3.76 M/uL (4.20-5.40); White Blood Count 12.61 K/ul (4.8-10.8)
[2023-09-08 07:17] LABS: Albumin Level 2.9 gm/dl (3.4-5.0); Bilirubin,Total 0.6 mg/dl (0.2-1.0); Potassium 3.4 mmol/L (3.5-5.1)
[2023-09-08 07:23] LABS: Albumin Globulin Ratio 1.3 (0.9-2); BUN Creatinine Ratio 35.3 (10-20); Creatinine Clr Calc Pharmacy 57.9 ml/min; Est GFR (African American) 96.4 ml/min; Est GFR (Non-African American) 83.2 ml/min; Globulin 2.2 gm/dl (2.5-4.0); Total Protein 5.1 gm/dl (6.0-8.3)
[2023-09-08] MEDS ORDERED: oxyCODONE HCL IR 5 MG TAB (IMMEDIATE RELEASE) PO PRN (07:53)
[2023-09-08] MEDS ORDERED: HYDROmorphone INJ 0.5 MG/0.5 ML SYR IV PRN (07:56)
--- NOTE | 2023-09-08 08:00 | Hospitalist Progress Note ---
Date of Service September 08, 2023 Assessment & Plan (1) SBO (small bowel obstruction): Plan: 78-year-old woman with history of atrial fibrillation anticoagulated on Eliquis and history of Parkinson's with a deep brain stimulator presented with acute high-grade small bowel obstruction caused by incarcerated left inguinal hernia CT-A/P: 1. High-grade small bowel obstruction secondary to an incarcerated left inguinal hernia.2. No intraperitoneal free air is identified. There is no pneumatosis intestinalis or portal venous gas. There is trace interloop fluid and perihepatic ascites. 3. Additional findings as above. Surgery consulted. -- underwent laparoscopic left inguinal hernia repair with mesh by Dr. Velazquez 09/05 -- advanced to full liquids today and had large BM. po oxycodone prn, replacing mild hypokalemia po -- a.m. BMP, mag. monitor exam. monitor localized erythema around incisions - allergic reaction to glue? -- PT/OT eval rec rehab which she declined - has 24h support at home and prefers home health. discussed with care services manager (2) Incarcerated hernia: Plan: see above (3) Atrial fib/flutter, transient: Plan: A flutter, sick sinus syndrome, atrial fibrillation, tachybradycardia syndrome TTE this admission showed normal EF 65-70% no RWMA's, borderline aortic stenosis and mild AR Follows with [facility]. Patient generally 60s on beta-ira with up titration for tachycardic episodes limited by intermittent 2-1 block with bradycardia. Patient was recommended for loop recorder, patient had not yet followed up for this Resume apixaban Metoprolol 12.5 mg p.o. bid (4) Parkinson disease: Plan: Parkinson's disease With deep brain stimulator, [employer] model [id number] implanted 2022 resumed Sinemet, entacapone and ropinirole held not available, discussed with pharmacist Plan DVT prophylaxis: SCDs, subcu heparin, resume apixaban in AM CODE STATUS: Full code Admission and Anticipated Discharge Date Admission Date: September 05, 2023 Subjective advanced to clears. very little abdominal pain or nausea. later in day RN reported tolerated FLD for lunch and had large BM. Physical Exam 2 Physical Exam: PHYSICAL EXAMINATION Last 24h vital signs reviewed, see documentation in flowsheet General: more alert/awake sitting in bed HEENT: Normocephalic, atraumatic, pupils round and equal, sclerae anicteric, no conjunctival injection, moist mucus membranes, NG tube was removed Lungs: Normal respiratory effort. Clear to auscultation bilaterally. No RRW Heart: Regular rate and rhythm, no murmurs. No JVD Abdomen: Soft, minimally distended. nontender Bowel sounds present. laparotomy incisions well opposed no drainage, some very localized erythema around incisions - allergy to glue? Extremities: Warm, dry, well-perfused. No extremity edema. Neuro: Alert and oriented x 4, face symmetric, moves 4 extremities well Psych: Normal affect and behavior Results & Data Results & Data Vital Signs (Past 12 Hours) Vital Signs Temp Pulse Pulse Resp BP BP BP 09/08/23 07:51 63 09/08/23 07:11 36.7 C 69 19 126/68 09/08/23 05:04 63 125/60 09/08/23 04:49 72 133/63 09/08/23 04:48 37 C 72 16 133/63 09/08/23 04:04 37.0 C 73 18 118/71 09/07/23 22:53 68 134/60 09/07/23 22:41 37.0 C 65 16 132/76 09/07/23 22:38 74 136/60 09/07/23 22:36 74 136/60 09/07/23 20:06 36.8 C 78 18 135/77 Pulse Ox O2 Del Method 09/08/23 07:51 09/08/23 07:11 97 Room Air 09/08/23 05:04 09/08/23 04:49 09/08/23 04:48 94 Room Air 09/08/23 04:04 96 Room Air 09/07/23 22:53 09/07/23 22:41 95 Room Air 09/07/23 22:38 09/07/23 22:36 09/07/23 20:06 95 Room Air Laboratory Results 09/08/23 06:10 09/08/23 06:10 PG Care Time/CCT Total # of Minutes Spent Total Time Spent with Patient: Total time spent is greater than 50% in coordination of care (as documented) at patient's floor/unit and/or counseling patient: Coding Level of Care Code 16312 SUB INP/OBS CARE 2/35MIN Diagnoses SBO (small bowel obstruction) K56.609 Incarcerated hernia K46.0 Atrial fib/flutter, transient I48.91; I48.92 Parkinson disease G20.B2 Dyskinesia presence: with dyskinesia Fluctuating manifestations: with fluctuating manifestations (4) Parkinson disease Dyskinesia presence: with dyskinesia Fluctuating manifestations: with fluctuating manifestations Qualified Code(s): G20.B2 - Parkinson's disease with dyskinesia, with fluctuations
[2023-09-08] MEDS ORDERED: MELATONIN 3 MG TAB PO PRN (08:17)
--- NOTE | 2023-09-08 08:56 | Surgery Progress Note ---
Date of Service September 08, 2023 Assessment & Plan (1) Incarcerated inguinal hernia: Plan: doing well will advance to full liquids. increase ambulation potential d/c tomorrow Admission and Anticipated Discharge Date Admission Date: September 05, 2023 Subjective pt seen. feeling much better. [place] clears. no pain. no n/v...... +flatus Physical Exam Physical Exam: alert. nad abd: soft. nt. incisions look good Results & Data Vital Signs (Past 12 Hours) Vital Signs Temp Pulse Pulse Resp BP BP BP 09/08/23 07:51 63 09/08/23 07:11 36.7 C 69 19 126/68 09/08/23 05:04 63 125/60 09/08/23 04:49 72 133/63 09/08/23 04:48 37 C 72 16 133/63 09/08/23 04:04 37.0 C 73 18 118/71 09/07/23 22:53 68 134/60 09/07/23 22:41 37.0 C 65 16 132/76 09/07/23 22:38 74 136/60 09/07/23 22:36 74 136/60 Pulse Ox O2 Del Method 09/08/23 07:51 09/08/23 07:11 97 Room Air 09/08/23 05:04 09/08/23 04:49 09/08/23 04:48 94 Room Air 09/08/23 04:04 96 Room Air 09/07/23 22:53 09/07/23 22:41 95 Room Air 09/07/23 22:38 09/07/23 22:36 PG Care Time/CCT Total # of Minutes Spent Total Time Spent with Patient: Total time spent is greater than 50% in coordination of care (as documented) at patient's floor/unit and/or counseling patient: Coding Level of Care Code 78685 Post Operative Follow-Up Diagnoses Incarcerated inguinal hernia K40.30
[2023-09-08] MEDS: POTASSIUM CHLORIDE CRTAB 20 MEQ TABCR PO STA (09:01)
[2023-09-08] MEDS: METOPROLOL TARTRATE 25 MG TAB PO SCH (09:02)
[2023-09-08] MEDS: CARBIDOPA/LEVODOPA 25/100MG TAB PO SCH (09:02)
[2023-09-08] MEDS: ENTACAPONE 200 MG TAB PO SCH (09:03)
[2023-09-08] MEDS ORDERED: Nursing to Pharmacy Communication SCH (17:15)
[2023-09-08] MEDS: ACETAMINOPHEN 500 MG TAB PO PRN (18:04)
[2023-09-09 07:10] LABS: Basophils # (auto) 0.03 K/uL (0.00-0.20); Basophils % (auto) 0.3 %; Eosinophils # (auto) 0.44 K/uL (0.00-0.50); Hematocrit (blood only) 33.5 % (37.0-47.0); Hemoglobin 11.1 g/dl (12.0-16.0); Immature Granulocytes # (auto) 0.03 K/uL (0.01-0.20); Immature Granulocytes % (auto) 0.3 %; Lymphocytes # (auto) 2.11 K/uL (1.20-3.40); Lymphocytes % (auto) 19.3 %; Mean Corpuscular Hemoglobin 30.5 pg (25.0-34.0); Mean Corpuscular Hgb Conc 33.1 g/dL (32.0-36.0); Mean Platelet Volume 10.5 fL (9.4-12.4); Monocytes # (auto) 1.25 K/uL (0.11-0.59); Monocytes % (auto) 11.4 %; Neutrophils # (auto) 7.09 K/uL (1.40-6.50); Neutrophils % (auto) 64.7 %; Platelet Count 225 K/uL (130-400); RDW Coefficient of Variation 12.9 % (11.5-14.5); RDW Standard Deviation 43.4 fL (36.4-46.3); Red Blood Count 3.64 M/uL (4.20-5.40); White Blood Count 10.95 K/ul (4.8-10.8)
[2023-09-09 07:28] LABS: BUN Creatinine Ratio 25.8 (10-20); Creatinine Clr Calc Pharmacy 63.5 ml/min; Est GFR (African American) 99.4 ml/min; Est GFR (Non-African American) 85.8 ml/min; Potassium 3.6 mmol/L (3.5-5.1)
--- NOTE | 2023-09-09 09:56 | Surgery Progress Note ---
<Statement entered by Jayleen Deng, DO - 09/09/23 13:53> I have seen and examined this patient with the surgical HELICOPTER OFFICER. I agree with this plan Date of Service September 09, 2023 Assessment & Plan (1) Incarcerated inguinal hernia: Plan: tolerating fulls advance to low fiber wbc downtrending VSS port sites CDI dermabond, Mild erythema surrounding could be reactive from skin glue, no drainage Had BM yesterday Ok for d/c from surgical standpoint f/u office [address] Velazquez seen and examined [facility] Dr. Deng Admission and Anticipated Discharge Date Admission Date: September 05, 2023 Subjective no abd pain, n/v +flatus + BM Review of Systems Constitutional: no fever and no chills Respiratory: no dyspnea Cardiovascular: no chest pain Gastrointestinal: no abdominal pain, no nausea and no vomiting Physical Exam Constitutional: cooperative and comfortable; no acute distress Respiratory: normal respiratory effort and able to speak in complete sentences; no respiratory distress Cardiovascular: Rate/Rhythm: regular rate Gastrointestinal (Abdomen): Inspection/Auscultation: abdomen not distended Percussion/Palpation: abdomen soft Results & Data Vital Signs (Past 12 Hours) Vital Signs Temp Pulse Resp BP Pulse Ox O2 Del Method 09/09/23 07:04 97.6 F 68 16 111/67 94 Room Air Results CBC w Diff Results: RBC 3.64 M/uL (4.20-5.40) L 09/09/23 WBC 10.95 K/ul (4.8-10.8) H 09/09/23 Hgb 11.1 g/dl (12.0-16.0) L 09/09/23 Hct 33.5 % (37.0-47.0) L 09/09/23 MCV 92.0 fL (80.0-100.0) 09/09/23 MCH 30.5 pg (25.0-34.0) 09/09/23 MCHC 33.1 g/dL (32.0-36.0) 09/09/23 RDW Standard Deviation 43.4 fL (36.4-46.3) 09/09/23 RDW Coefficient of Variation 12.9 % (11.5-14.5) 09/09/23 Plt Count 225 K/uL (130-400) 09/09/23 MPV 10.5 fL (9.4-12.4) 09/09/23 Neutrophils (%) (Auto) 64.7 % 09/09/23 Lymphocytes (%) (Auto) 19.3 % 09/09/23 Monocytes # (Auto) 1.25 K/uL (0.11-0.59) H 09/09/23 Eosinophils # (Auto) 0.44 K/uL (0.00-0.50) 09/09/23 Immature Granulocyte % (Auto) 0.3 % 09/09/23 Neutrophils # (Auto) 7.09 K/uL (1.40-6.50) H 09/09/23 Lymphocytes # (Auto) 2.11 K/uL (1.20-3.40) 09/09/23 Monocytes # (Auto) 1.25 K/uL (0.11-0.59) H 09/09/23 Eosinophils # (Auto) 0.44 K/uL (0.00-0.50) 09/09/23 Basophils # (Auto) 0.03 K/uL (0.00-0.20) 09/09/23 Immature Granulocyte # (Auto) 0.03 K/uL (0.01-0.20) 4 PG Care Time/CCT Total # of Minutes Spent Total Time Spent with Patient: Total time spent is greater than 50% in coordination of care (as documented) at patient's floor/unit and/or counseling patient: Coding Level of Care Code 21937 Post Operative Follow-Up Diagnoses Incarcerated inguinal hernia K40.30
[2023-09-09] MEDS: APIXABAN 5 MG TABLET PO SCH (10:48)
--- NOTE | 2023-09-09 14:57 | Discharge Summary ---
Discharge Summary Date of Service September 09, 2023 Principal Dx & Hospital Course #1 = Principal Diagnosis (1) SBO (small bowel obstruction): 78-year-old woman with history of atrial fibrillation anticoagulated on Eliquis and history of Parkinson's with a deep brain stimulator presented with acute high-grade small bowel obstruction caused by incarcerated left inguinal hernia CT-A/P: 1. High-grade small bowel obstruction secondary to an incarcerated left inguinal hernia.2. No intraperitoneal free air is identified. There is no pneumatosis intestinalis or portal venous gas. There is trace interloop fluid and perihepatic ascites. 3. Additional findings as above. Surgery consulted. NG tube placed -- underwent laparoscopic left inguinal hernia repair with mesh by Dr. Velazquez 09/05 -- large BM 09/07 and tolerated advancement to low fiber diet. only needing acetaminophen for pain control -- improving localized erythema around incisions - probably reaction to glue, does not appear infected -- follow-up with Dr. Velazquez in 2 weeks -- PT/OT eval recommended rehab stay. rehab was recommended by the healthcare business analyst, myself, and the physical therapist which she declined. Has 24h support at home With her daughters and , is able to stay on 1 level, and prefers home health. her and her daughter were present today for PT evaluation. (2) Incarcerated hernia: see above (3) Atrial fib/flutter, transient: A flutter, sick sinus syndrome, atrial fibrillation, tachybradycardia syndrome TTE this admission showed normal EF 65-70% no RWMA's, borderline aortic maryse nosis and mild AR Follows with [facility] cardiology. Patient generally 60s on beta-ira with up titration for tachycardic episodes limited by intermittent 2-1 block with bradycardia. she was recommended for loop recorder, had not yet followed up for this Resumed apixaban postoperatively Metoprolol 12.5 mg p.o. bid -- no issues with rate control or bradycardias this admission (4) Parkinson disease: Parkinson's disease With deep brain stimulator, [employer] model [id number] implanted 2022 resumed Sinemet, entacapone and ropinirole Notes For Next Care Provider has yet to follow-up for placement of loop recorder if she chooses to do so high fall risk and we recommended rehab stay which she repeatedly declined, has 24-hour support at home is able to stay on 1 level, home health was arranged Medication Changes From Visit no changes except addition of OTC bowel regimen as needed Admission HPI Per Admitting Provider Juany is a 78-year-old female with a past medical history of atrial fibrillation/flutter, sick sinus syndrome, gastroparesis, Parkinson's, trigeminal neuralgia, cognitive impairment who presents to the ER with abdominal pain who was found to have a high-grade bowel obstruction due to incarcerated left inguinal hernia. No free air or pneumatosis is seen. Trace noted fluid perihepatic ascites present. Juany is seen at the bedside. She reports that on Monday she developed discomfort when swallowing and some abdominal left lower quadrant discomfort, although most of her symptoms were just fell burping and discomfort with swallowing. This is progressively worsened and now has almost no appetite, nausea, and some shortness of breath with belching. Initially denies abdominal pain, but is tender to palpation at the left lower quadrant. She has not had a bowel movement in 2-3 weeks, minimal to no flatus. Feels that her NGT gave her some relief in the ER still feels poorly. Denies fever, chills, sweats. Denies history of abdominal surgery. Does have history of deep brain stimulator implantation in 2022 Has a history of a flutter/sick sinus syndrome/tachybradycardia syndrome on Eliquis. She did not take Eliquis this morning. Last dose of Eliquis approximately 9 PM last night. She reports that she is limited in exertion due to weakness and Parkinson's, but is generally able to walk downtown without any limiting chest pain. She does get short of breath fairly easily but this is not been associated with any sweats and she denies any history of heart failure, orthopnea, leg swelling. She has never been on diuretics. Denies history of kidney disease Discussed with her neurosurgeon Dr. Olivas is available at [phone]. She does have a [employer] brain stimulator that can either be placed on surgery mode or turned off for any surgeries. Patient has this controlled at bedside. Recommended minimizing monopolar cautery as able. Discharge Exam PHYSICAL EXAMINATION Last 24h vital signs reviewed, see documentation in flowsheet General: sitting up in bed awake and alert HEENT: Normocephalic, atraumatic, pupils round and equal, sclerae anicteric, no conjunctival injection, moist mucus membranes Lungs: Normal respiratory effort. Clear to auscultation bilaterally. No RRW Heart: Regular rate and rhythm, no murmurs. No JVD Abdomen: Soft, nondistended. nontender, active bowel tones present laparotomy incisions well opposed no drainage, some very localized erythema around incisions has improved/darkened Extremities: Warm, dry, well-perfused. No extremity edema. Neuro: Alert and oriented x 4, face symmetric, moves 4 extremities well Psych: Normal affect and behavior Updated Medication List Medication Instructions Recorded Confirmed Type melatonin 5 mg tablet 5 mg PO HS PRN Sleep 05/09/20 09/05/23 History entacapone 200 mg tablet 200 mg PO QID 02/02/21 09/05/23 History ropinirole 2 mg tablet,extended 6 mg PO HS 05/11/23 09/05/23 History release 24 hr cholecalciferol (vitamin D3) 25 50 mcg (2 x 25 mcg (1,000 unit)) 05/22/23 09/05/23 Rx mcg (1,000 unit) capsule (Vitamin PO QAM #90 caps D3) apixaban 5 mg tablet (Eliquis) 5 mg PO BID #180 tabs 06/14/23 09/05/23 Rx metoprolol tartrate 25 mg tablet 12.5 mg (1/2 x 25 mg) PO BID #60 08/10/23 09/05/23 Rx tabs carbidopa 25 mg-levodopa 100 mg 1.5 tab PO QID 09/04/23 09/05/23 History tablet acetaminophen 500 mg tablet 1,000 mg (2 x 500 mg) PO Q8H PRN 09/09/23 Rx (Tylenol Extra Strength) #0 tabs polyethylene glycol 3350 17 17 g PO DAILY PRN constipation 09/09/23 Rx gram/dose oral powder (Miralax) #119 grams sennosides 8.6 mg tablet (senna) 8.6 - 17.2 mg (1 - 2 x 8.6 mg) PO 09/09/23 Rx DAILY PRN constipation #30 tabs Hospital Stay Data Consultations 09/05/23 16:54 Consult General Surgery Stat 09/05/23 17:17 ED Decision to Admit Stat Procedures Performed Operation Date: 09/06/23 09:10 Actual Procedures p Laparoscopic Incarcerated Left Inguinal Hernia Repair with Mesh,(Left) - Hernesto Velazquez DO s Reduction of Small Bowel Obstruction - Hernesto Velazquez DO Diagnostic Imagining Performed 09/05/23 12:24 CT Abd and Pelvis [CT abd pelvis oral and IV con] Stat Chest X-Ray 09/05/23 11:16 XR chest 1V portable HISTORY: Shortness of breath. COMPARISON: Chest 05/12/2023. FINDINGS: The lungs are clear. Cardiac silhouette is normal in size. No pleural effusions. No pneumothorax. Right sided neurostimulator device is again noted. IMPRESSION: No acute process. ACT 112: Negative or not required by law. Electronically signed by: Johnny Fried M.D. 09/05/2023 12:33 PM Abdomen/Pelvis CT 09/05/23 12:24 CT SCAN OF THE ABDOMEN AND PELVIS WITH IV CONTRAST CLINICAL HISTORY: Generalized abdominal pain. Nausea and constipation. COMPARISON STUDY: No priors. TECHNIQUE: Following the IV administration of 94 cc of Optiray 320, CT scan of the abdomen and pelvis is performed from the lung bases to the proximal femora. Images are reviewed in the axial, sagittal, and coronal planes. IV contrast was administered without complication. Oral contrast was utilized. A dose lowering technique was utilized adhering to the principles of ALARA. CT DOSE: 543.47 mGy.cm FINDINGS: Lung bases: The heart is normal in size and without pericardial effusion. A calcified granuloma is seen at the right lung base. The lung bases are otherwise clear noting bibasilar scarring/atelectasis. Liver: The contrast-enhanced liver is normal in size, contour, and attenuation. There is no intrahepatic biliary ductal dilatation. The hepatic veins and portal veins are patent. Gallbladder: Distended but otherwise normal in appearance. Spleen: Normal in size and attenuation. Pancreas: Moderately atrophic and grossly unremarkable. Adrenal glands: Unremarkable. Kidneys: The contrast enhanced kidneys are normal in size and without hydronephrosis. The kidneys enhance symmetrically. A 6 cm cyst is seen on the right. Additional subcentimeter cortical hypodensities likely represent cysts but are too small for definitive characterization. Abdominal vasculature: The abdominal aorta is normal in course and caliber noting mild atherosclerotic calcification. Stomach and bowel: There is a small hiatal hernia. The stomach and esophagus are distended with enteric contrast. The small bowel loops are markedly distended and fluid-filled, measuring up to 5 cm in diameter. There is incarcerated loop of small bowel within a left groin hernia. The small bowel distal to the hernia and colon are decompressed, and this is consistent with a high-grade obstruction. The transition point is best seen on axial image #304. There is trace interloop fluid. No pneumatosis intestinalis or portal venous gas is seen. There is mild colonic diverticulosis without CT evidence of acute diverticulitis. Fecal retention is noted in the right colon. The appendix is well-visualized and normal. Peritoneum: No intraperitoneal free air is identified. There is trace perihepatic ascites. Lymphadenopathy: None. Pelvic viscera: The bladder, uterus, and adnexa are normal as visualized. There is a bowel containing left inguinal hernia. Skeletal structures: The skeletal structures are osteopenic. Mild lumbosacral spondylosis is observed. No lytic or blastic lesions are seen. IMPRESSION: 1. High-grade small bowel obstruction secondary to an incarcerated left inguinal hernia. 2. No intraperitoneal free air is identified. There is no pneumatosis intestinalis or portal venous gas. There is trace interloop fluid and perihepatic ascites. 3. Additional findings as above. ACT 112: Negative or not required by law. Electronically signed by: Tyler Nj M.D. 09/05/2023 4:20 PM KUB X-Ray 09/07/23 06:00 KUB HISTORY: Small bowel obstruction. Follow-up. eval bowel/gas pattern COMPARISON: Abdomen and pelvis CT 09/05/2023. FINDINGS: Nasogastric tube terminates in the stomach. Dilated gas-filled loops of small bowel are again noted predominantly the left side the abdomen measuring up to 4 cm consistent with the patient's known small bowel obstruction. There is gas and stool remaining within the colon. No renal calculi. No ureteral calculi. No pneumoperitoneum or pneumatosis. IMPRESSION: 1. Nasogastric tube terminates in the stomach. 2. Persistent small bowel obstruction pattern. ACT 112: Negative or not required by law. Electronically signed by: Johnny Fried M.D. 09/07/2023 10:59 AM Pending Results Patient Have Any Pending Studies at Discharge: No Discharge Instructions Given to Patient (Per Discharging Provider) You have surgical glue called dermabond on your surgical site incisions. You may shower with this on. This will tend to come off within a couple of weeks. Do not pick at it. You may apply ice over your incision area, 20 minutes on , 20 minutes over the next week for comfort. No driving for 1 week and no driving if taking narcotic pain medication Follow a low fiber diet for a few days or about a week, after that you can resume your normal diet as long as you are not having nausea/vomiting or abdominal pain We recommend a rehab stay because your fall risk is high. Do not get up without a family member standing by at all times. Home health physical and occupational therapy. Stay off the stairs until your strength is significantly improved. Home Health Attestation I certify that this patient is under my care and that I, or a physicians occupational therapy assistant working with me, had a face to-face encounter that meets the home health [id number] encounter requirements with this patient. The encounter with the patient was in whole, or in part, for the following medical condition, which is the primary reason for home health care (list medical condition): acute small bowel obstruction due to incarcerated inguinal hernia, Parkinson's disease, deconditioning I certify that, based on my findings, the following services are medically necessary home health services: physical and Occupational Therapy My clinical findings support the need for the above services because: deconditioning after hospital stay and functional status significantly worse than baseline, unsteady gait and requiring walker and standby assistance for safe ambulation and transfer, acute pain related to abdominal surgery Further, I certify that my clinical findings support that this patient is homebound (i.e. absences from home require considerable and taxing effort and are for medical reasons or anglican services or infrequently or of short duration when for other reasons) because: ambulates short distances only with walker and standby assistance Certification for Home Health Services: Based on the above findings, I certify that this patient is confined to the home and needs intermittent usp care, physical therapy and/or speech therapy or continues to need occupational therapy. The patient is under my care, and I have initiated the establishment of the plan of care. This patient will be followed by a physician who will periodically review the plan of care. Total Time Total Time Spent Total Time Spent (In Minutes): I personally spent: 45 minutes today on clinical care activities including: reviewing chart notes and vital signs reviewing labs discussion with healthcare business analyst, bedside RN, physical therapist examining and counseling the patient writing discharge orders, home health orders, discharge instructions documentation Coding Level of Care Code 21187 INP/OBS DISCH >30 MIN Diagnoses SBO (small bowel obstruction) K56.609 Incarcerated hernia K46.0 Atrial fib/flutter, transient I48.91; I48.92 Parkinson disease G20.B2 Dyskinesia presence: with dyskinesia Fluctuating manifestations: with fluctuating manifestations
== END 2023-09-09 13:49 | disposition home health service (06) | DRG 351 ==
LOC: ED 10:18 → 2E 18:20 → SUATTDRO 18:20 → 2E 20:39 → 3W 09-08 18:00